=== PATIENT | female | born 1940 | race Caucasian/White ===

== ENCOUNTER → 2016-09-22 | Outpatient (CLI) | payer MEDICARE ==
--- NOTE | 2016-09-22 10:12 | REP ---
UNILATERAL MAMMOGRAM LEFT BREAST: HISTORY: Right breast cancer with mastectomy. MLO and CC views of the left breast are performed and compared to multiple prior exams, most recent of which is 09/21/2015. Breast parenchyma is moderately dense which limits the sensitivity of the mammogram. There is no definite new mass. No architectural distortion or suspicious clusters of microcalcifications are seen. IMPRESSION: ACR 2 benign mammogram left breast in this patient status post right mastectomy. Recommend followup mammogram in 1 year. BI-RADS/ACR category 2 mammogram. Benign finding(s). Routine annual screening mammography (for women over age 40). This mammogram was interpreted with the aid of an FDA-approved computer-aided detection system. A. Negative x-ray reports should not delay biopsy if a dominant or clinically suspicious mass is present. B. Four to eight percent of cancers are not identified by x-ray. C. Adenosis and dense breasts may obscure an underlying neoplasm. The patient states she had a clinical breast exam in 10/2015. The patient letter being requested is M1. Signed by Isaiah Ferguson MD 09/22/2016 08:06 P
== END ==
LOC: M RAD 07:54
PROVIDERS: ATTEND Nurse Practitioner Family
DX: Z12.31 Encounter for screening mammogram for malignant neoplasm of breast (principal)

== ENCOUNTER 2017-02-26 06:06 | Emergency (ER) | payer MEDICARE ==
[~2017-02-26] VITALS: Ht 157.5 cm; Wt 87.2 kg
[2017-02-26 07:25] LABS: BASO # 0.1 10^3/uL (0.0-0.2); BASO % 0.5 % (0.0-1.0); EOS # 0.4 10^3/uL (0.0-0.50); EOS % 3.9 % (0.0-3.0); IMMATURE GRANULOCYTE % 0.5 % (0-0); LYMPH # 1.6 10^3/uL (1.5-4.5); LYMPH % 14.5 % (24.0-44.0); MEAN CORPUSCULAR HEMOGLOBIN 28.3 pg (27.0-33.0); MEAN CORPUSCULAR HGB CONC 32.7 g/dl (32.0-36.5); MEAN CORPUSCULAR VOLUME 86.6 fl (80.0-96.0); MONO # 0.7 10^3/uL (0.0-0.8); MONO % 6.7 % (0.0-5.0); NEUTROPHILS # 8.1 10^3/uL (1.8-7.7); NEUTROPHILS % 73.9 % (36.0-66.0); PLATELET COUNT, AUTOMATED 284 10^3/uL (150-450); RED CELL DISTRIBUTION WIDTH 15.4 % (11.5-14.5); WHITE BLOOD COUNT 10.9 10^3/uL (4.0-10.0)
[2017-02-26 08:01] LABS: ANION GAP 6 MEQ/L (8-16); BLOOD UREA NITROGEN 11 MG/DL (7-18); CALCIUM LEVEL 9.2 MG/DL (8.8-10.2); CARBON DIOXIDE LEVEL 29 MEQ/L (21-32); CHLORIDE LEVEL 107 MEQ/L (98-107); CREATININE FOR GFR 0.76 MG/DL (0.55-1.02); GLOMERULAR FILTRATION RATE > 60.0 (>39); GLUCOSE, FASTING 103 MG/DL (83-110); POTASSIUM SERUM 4.8 MEQ/L (3.5-5.1); SODIUM LEVEL 142 MEQ/L (136-145)
[2017-02-26] MEDS ORDERED: TRIA25CR TOP (08:27)
[2017-02-26] MEDS ORDERED: DOXY100C37 PO (08:27)
[2017-02-26] MEDS ORDERED: BENA25TA10 PO (08:27)
[2017-02-26 08:39] VITALS: BP 172/77
== END 2017-02-26 08:41 | disposition home or self-care (01) ==
LOC: M ED 06:06
DX: L25.9 Unspecified contact dermatitis, unspecified cause (principal); L03.211 Cellulitis of face; Z85.3 Personal history of malignant neoplasm of breast; F17.200 Nicotine dependence, unspecified, uncomplicated; Z88.0 Allergy status to penicillin

== ENCOUNTER 2017-02-28 08:41 | Emergency (ER) | payer MEDICARE ==
[~2017-02-28] VITALS: Ht 157.5 cm; Wt 87.2 kg
[~2017-02-28 08:41] MED LIST: BENA25TA10 PO; DOXY100C37 PO; TRIA25CR TOP
[2017-02-28 09:50] LABS: BASO # 0.1 10^3/uL (0.0-0.2); BASO % 0.7 % (0.0-1.0); EOS # 0.3 10^3/uL (0.0-0.50); EOS % 2.8 % (0.0-3.0); IMMATURE GRANULOCYTE % 0.5 % (0-0); LYMPH # 1.6 10^3/uL (1.5-4.5); LYMPH % 14.4 % (24.0-44.0); MEAN CORPUSCULAR HEMOGLOBIN 28.3 pg (27.0-33.0); MEAN CORPUSCULAR HGB CONC 33.1 g/dl (32.0-36.5); MEAN CORPUSCULAR VOLUME 85.5 fl (80.0-96.0); MONO # 0.7 10^3/uL (0.0-0.8); MONO % 6.1 % (0.0-5.0); NEUTROPHILS # 8.2 10^3/uL (1.8-7.7); NEUTROPHILS % 75.5 % (36.0-66.0); PLATELET COUNT, AUTOMATED 285 10^3/uL (150-450); RED CELL DISTRIBUTION WIDTH 15.3 % (11.5-14.5); WHITE BLOOD COUNT 10.8 10^3/uL (4.0-10.0)
[2017-02-28 09:52] LABS: ADD MANUAL DIFFER NO; DIFF SLIDE NUMBER 129
[2017-02-28 10:13] LABS: ALBUMIN 3.7 GM/DL (3.2-5.2); ALBUMIN/GLOBULIN RATIO 1.32 (1.00-1.93); ALKALINE PHOSPHATASE 109 U/L (45-117); ALT/SGPT 16 U/L (12-78); ANION GAP 6 MEQ/L (8-16); AST/SGOT 13 U/L (15-37); BILIRUBIN,DIRECT 0.1 MG/DL (0.0-0.2); BILIRUBIN,TOTAL 0.5 MG/DL (0.2-1.0); BLOOD UREA NITROGEN 14 MG/DL (7-18); CALCIUM LEVEL 9.3 MG/DL (8.8-10.2); CARBON DIOXIDE LEVEL 27 MEQ/L (21-32); CHLORIDE LEVEL 108 MEQ/L (98-107); CREATININE FOR GFR 0.62 MG/DL (0.55-1.02); GLOMERULAR FILTRATION RATE > 60.0 (>39); GLUCOSE, FASTING 99 MG/DL (83-110); POTASSIUM SERUM 3.9 MEQ/L (3.5-5.1); SODIUM LEVEL 141 MEQ/L (136-145); TOTAL PROTEIN 6.5 GM/DL (6.4-8.2)
[2017-02-28] MEDS ORDERED: CLINDAMYCIN 900 MG in APPROPRIATE DILUENT 1 EA IV ONE (10:30)
[2017-02-28] MEDS ORDERED: CLIN150C14 PO (12:02)
[2017-02-28 12:15] VITALS: BP 158/78
== END 2017-02-28 12:22 | disposition home or self-care (01) ==
LOC: M ED 08:41
DX: Z51.89 Encounter for other specified aftercare (principal); L03.211 Cellulitis of face; Z85.3 Personal history of malignant neoplasm of breast; Z88.0 Allergy status to penicillin

== ENCOUNTER → 2017-03-02 | Outpatient (REF) | payer MEDICARE ==
[~2017-03-02] MED LIST changes: +CLIN150C14 PO
[2017-03-02 20:27] LABS: ALBUMIN 3.8 GM/DL (3.2-5.2); ALBUMIN/GLOBULIN RATIO 1.31 (1.00-1.93); ALKALINE PHOSPHATASE 114 U/L (45-117); ALT/SGPT 20 U/L (12-78); ANION GAP 5 MEQ/L (8-16); AST/SGOT 12 U/L (15-37); BILIRUBIN,TOTAL 0.4 MG/DL (0.2-1.0); BLOOD UREA NITROGEN 17 MG/DL (7-18); CARBON DIOXIDE LEVEL 31 MEQ/L (21-32); CHLORIDE LEVEL 105 MEQ/L (98-107); CHOLESTEROL LEVEL 217 MG/DL (<200); CREATININE FOR GFR 0.89 MG/DL (0.55-1.02); GLOMERULAR FILTRATION RATE > 60.0 (>39); GLUCOSE, FASTING 114 MG/DL (83-110); POTASSIUM SERUM 3.8 MEQ/L (3.5-5.1); SODIUM LEVEL 141 MEQ/L (136-145); TOTAL PROTEIN 6.7 GM/DL (6.4-8.2); TRIGLYCERIDES LEVEL 178 MG/DL (<150)
== END ==
LOC: M SFHCPLAZ 15:26
PROVIDERS: ATTEND Family Medicine
DX: E66.9 Obesity, unspecified (principal); Z68.30 Body mass index [BMI] 30.0-30.9, adult; L30.9 Dermatitis, unspecified; A46 Erysipelas; F17.200 Nicotine dependence, unspecified, uncomplicated; Z79.899 Other long term (current) drug therapy
CPT/HCPCS: 80053; 80061; 83036; G0463

== ENCOUNTER → 2017-04-01 | Outpatient (CLI) | payer MEDICARE ==
[2017-04-01 19:13] LABS: ANION GAP 8 MEQ/L (8-16); BLOOD UREA NITROGEN 10 MG/DL (7-18); CARBON DIOXIDE LEVEL 29 MEQ/L (21-32); CHLORIDE LEVEL 105 MEQ/L (98-107); CREATININE FOR GFR 0.72 MG/DL (0.55-1.02); GLOMERULAR FILTRATION RATE > 60.0 (>39); GLUCOSE, FASTING 92 MG/DL (83-110); SODIUM LEVEL 142 MEQ/L (136-145)
== END ==
LOC: M LAB 18:06
PROVIDERS: ATTEND Family Medicine
DX: I16.0 Hypertensive urgency (principal)
CPT/HCPCS: 36415; 80048; 83880; 84484; 93005; G0463

== ENCOUNTER → 2017-04-28 | Outpatient (REF) | payer MEDICARE ==
[2017-04-28 16:22] LABS: ANION GAP 7 MEQ/L (8-16); BLOOD UREA NITROGEN 22 MG/DL (7-18); CALCIUM LEVEL 9.1 MG/DL (8.8-10.2); CARBON DIOXIDE LEVEL 32 MEQ/L (21-32); CHLORIDE LEVEL 101 MEQ/L (98-107); CREATININE FOR GFR 0.78 MG/DL (0.55-1.02); GLOMERULAR FILTRATION RATE > 60.0 (>39); GLUCOSE, FASTING 76 MG/DL (83-110); POTASSIUM SERUM 4.6 MEQ/L (3.5-5.1); SODIUM LEVEL 140 MEQ/L (136-145)
== END ==
LOC: M SFHCPLAZ 14:25
PROVIDERS: ATTEND Family Medicine
DX: I10 Essential (primary) hypertension (principal)
CPT/HCPCS: 80048; G0463

== ENCOUNTER → 2017-09-17 | Outpatient (REF) | payer OTHER ==
[2017-09-17 13:58] LABS: ANION GAP 8 MEQ/L (8-16); BLOOD UREA NITROGEN 20 MG/DL (7-18); CARBON DIOXIDE LEVEL 29 MEQ/L (21-32); CHLORIDE LEVEL 108 MEQ/L (98-107); CHOLESTEROL LEVEL 183 MG/DL (<200); CHOLESTEROL RISK RATIO 3.588 (<5); GLOMERULAR FILTRATION RATE > 60.0 (>39); GLUCOSE, FASTING 84 MG/DL (70-100); HDL CHOLESTEROL 51 MG/DL (>40); LDL CHOLESTEROL 107.6 MG/DL (<100); NON-HDL-C 132 MG/DL; POTASSIUM SERUM 4.7 MEQ/L (3.5-5.1); SODIUM LEVEL 145 MEQ/L (136-145); TRIGLYCERIDES LEVEL 122 MG/DL (<150)
== END ==
LOC: M SFHCPLAZ 07:58
DX: E78.2 Mixed hyperlipidemia (principal); I10 Essential (primary) hypertension
CPT/HCPCS: 80061

== ENCOUNTER → 2017-09-25 | Outpatient (CLI) | payer OTHER, MEDICARE | LOC: M RAD 08:00 | DX: Z08 Encounter for follow-up examination after completed treatment for malignant neoplasm (principal); Z12.31 Encounter for screening mammogram for malignant neoplasm of breast; Z85.3 Personal history of malignant neoplasm of breast | CPT/HCPCS: 77067 ==

== ENCOUNTER → 2018-03-11 | Outpatient (REF) | payer OTHER ==
[2018-03-11 14:08] LABS: ANION GAP 8 MEQ/L (8-16); BLOOD UREA NITROGEN 20 MG/DL (7-18); CALCIUM LEVEL 8.4 MG/DL (8.8-10.2); CARBON DIOXIDE LEVEL 29 MEQ/L (21-32); CHLORIDE LEVEL 109 MEQ/L (98-107); CREATININE FOR GFR 0.99 MG/DL (0.55-1.30); GLOMERULAR FILTRATION RATE 57.6 (>39); GLUCOSE, FASTING 113 MG/DL (70-100); SODIUM LEVEL 146 MEQ/L (136-145)
== END ==
LOC: M SFHCPLAZ 09:09
DX: I10 Essential (primary) hypertension (principal)
CPT/HCPCS: 80048

== ENCOUNTER → 2018-09-27 | Outpatient (CLI) | payer MEDICARE ==
--- NOTE | 2018-09-27 14:45 | REP ---
UNILATERAL MAMMOGRAM LEFT BREAST WITH 3D TOMOSYNTHESIS: HISTORY: Right breast cancer and mastectomy. COMPARISON: 09/25/2017 as well as other prior exams. Mammography of the left breast performed in the MLO and CC projections with 3D tomosynthesis. Breast parenchyma is moderately dense. There is no change since the prior study. Small nodular density posterolaterally on the CC view is stable. I see no new mass or clustered microcalcifications. There are course benign type calcifications present. IMPRESSION: BIRADS 2: BI-RADS/ACR category 2 mammogram. Benign Findings. Stable mammogram left breast in this patient status post right mastectomy. Suggest followup mammogram in 1 year. This mammogram was interpreted with the aid of an FDA-approved computer-aided detection system. The patient states he/she had a clinical breast exam in 10/2017. The patient letter being requested is M1. Electronically Signed by Isaiah Ferguson MD 09/27/2018 04:27 P
== END ==
LOC: M RAD 09:24
PROVIDERS: ATTEND Nurse Practitioner Family
DX: Z12.31 Encounter for screening mammogram for malignant neoplasm of breast (principal); Z85.3 Personal history of malignant neoplasm of breast; Z90.11 Acquired absence of right breast and nipple; R92.1 Mammographic calcification found on diagnostic imaging of breast

== ENCOUNTER → 2020-08-13 | Outpatient (REF) | payer MEDICARE ==
[~2020-08-13] MED LIST changes: +ASPI81TA21 PO; -CLIN150C14 PO; +CLIN150C15 PO; +LOSA50TA88 PO; +METO25TA4 PO; +PRAV40TA2 PO
[2020-08-13 13:05] LABS: HEMATOCRIT 43.5 % (36.0-47.0); HEMOGLOBIN 13.8 g/dl (12.0-15.5); MEAN CORPUSCULAR HEMOGLOBIN 27.3 pg (27.0-33.0); MEAN CORPUSCULAR HGB CONC 31.7 g/dl (32.0-36.5); MEAN CORPUSCULAR VOLUME 86.1 fl (80.0-96.0); PLATELET COUNT, AUTOMATED 292 10^3/uL (150-450); RED BLOOD COUNT 5.05 10^6/uL (4.00-5.40); WHITE BLOOD COUNT 10.4 10^3/uL (4.0-10.0)
[2020-08-13 13:25] LABS: ALBUMIN 3.6 GM/DL (3.2-5.2); BILIRUBIN,TOTAL 0.4 MG/DL (0.2-1.0); CALCIUM LEVEL 9.3 MG/DL (8.8-10.2); CHOLESTEROL RISK RATIO 3.087 (<5); CREATININE FOR GFR 1.08 MG/DL (0.55-1.30); GLOMERULAR FILTRATION RATE 51.8 (>32); POTASSIUM SERUM 4.4 MEQ/L (3.5-5.1); TOTAL PROTEIN 6.4 GM/DL (6.4-8.2)
== END ==
LOC: M SFHCPLAZ 10:51
PROVIDERS: ATTEND Family Medicine
DX: E78.5 Hyperlipidemia, unspecified (principal); I10 Essential (primary) hypertension
CPT/HCPCS: 36415; 80053; 80061; 85027; G0463

== ENCOUNTER → 2020-11-28 | Outpatient (CLI) | payer MEDICARE ==
[~2020-11-28] MED LIST changes: -DOXY100C37 PO; +DOXY1CAP62 PO
[2020-11-28 15:49] LABS: ALBUMIN 3.4 GM/DL (3.2-5.2); BILIRUBIN,TOTAL 0.7 MG/DL (0.2-1.0); CALCIUM LEVEL 8.8 MG/DL (8.8-10.2); CREATININE FOR GFR 1.02 MG/DL (0.55-1.30); GLOMERULAR FILTRATION RATE 55.2 (>32); POTASSIUM SERUM 4.3 MEQ/L (3.5-5.1); TOTAL PROTEIN 6.1 GM/DL (6.4-8.2)
== END ==
LOC: M PLALAB 12:20
PROVIDERS: ATTEND Student in an Organized Health Care Education/Training Program
DX: R74.8 Abnormal levels of other serum enzymes (principal)

== ENCOUNTER → 2021-01-28 | Outpatient (CLI) | payer MEDICARE ==
[~2021-01-28] MED LIST changes: -CLIN150C15 PO; +CLIN150C17 PO
[2021-01-28 20:20] LABS: % LABILE ALKALINE PHOSPHATASE 67.16 %
== END ==
LOC: M PLALAB 14:03
PROVIDERS: ATTEND Student in an Organized Health Care Education/Training Program
DX: R74.8 Abnormal levels of other serum enzymes (principal)

== ENCOUNTER → 2021-02-20 | Outpatient (CLI) | payer MEDICARE ==
--- NOTE | 2021-02-20 08:23 | REP ---
INDICATION: ELEVATED ALKALINE PHOSPHATE LEVEL. COMPARISON: None. TECHNIQUE: Standard ultrasound images of the right upper quadrant of the abdomen were obtained. FINDINGS: There is fatty liver infiltration. There is a cyst in the posterior segment of the right hepatic lobe measuring 2.3 x 2.1 x 1.9 cm. There is a 4 mm stone in the gallbladder. There is no gallbladder wall thickening. Common bile duct measures 6 mm in diameter. The right kidney measures 9.1 x 5.3 x 3.9 cm. The renal cortical echogenicity is increased consistent with medical renal disease. The renal cortical thickness is 8 mm. There are no focal abnormalities. There is no evidence of hydronephrosis. The pancreas is obscured by overlying bowel gas. IMPRESSION: 1. Fatty liver infiltration. 2. Cholelithiasis without evidence of cholecystitis. 3. Increased cortical echogenicity of the right kidney consistent with medical renal disease. <Electronically signed by Emerson Ferrell > 02/20/21 0819
== END ==
LOC: M RAD 07:39
PROVIDERS: ATTEND Student in an Organized Health Care Education/Training Program
DX: R74.8 Abnormal levels of other serum enzymes (principal); K80.20 Calculus of gallbladder without cholecystitis without obstruction

== ENCOUNTER 2021-05-03 18:26 | Inpatient (IN) | payer MEDICARE ==
[~2021-05-03] VITALS: Ht 152.4 cm; Wt 72.6 kg
[~2021-05-03 18:26] MED LIST changes: +DOXY-443 PO; -DOXY1CAP62 PO
--- OUTSIDE RECORDS SUMMARY | 2021-05-03 18:33 | CCD ---
Author Author [facility] Organization [facility] Address Unknown Phone Unavailable Care Team Providers Care Feed Blender Name Role Phone PricillaClemente Unavailable PROBLEMS Type Condition ICD9-CM Code [id number] Code Onset Dates Condition S tatus W/U Status Risk SNOMED Code Notes Problem Smoker F17.200 Active confirmed 81688426 Problem Mixed hyperlipidemia E78.2 Active confirmed 369749601 Problem Insomnia, unspecified type G47.00 Active confirmed 890633281 Problem Dyslipidemia E78.5 Active confirmed 3315892 07 Problem Psychophysiological insomnia F51.04 Active confirme d 56967394 Problem Hypertension, unspecified type I10 Active confir med 76720199 Problem Stress bladder incontinence, female N39.3 Acti ve confirmed 95694864 Problem Nicotine dependence with current use F17.200 Act monty confirmed 089624353 ALLERGIES Allergen (clinical drug ingredient) Drug/Non Drug Allergy do cumented on EMR Reaction Allergy Type Onset Date Status Penicillin (For Allergies Use Only) Hives Drug Allerg y Active ENCOUNTERS from 1940 to 2021-04-17 Encounter Location Date Provider Diagnosis [facility] [address] [place] [address] Apr, Clemente Pleitez IMMUNIZATIONS Vaccine Route Administration Date Status Influenza 18 yrs & older Flublok IM Intramuscular Mar 22, 2019 Administered Influenza 18 yrs & older Flublok IM Intramuscular Mar 18, 2018 Administered SOCIAL HISTORY Tobacco Use: Social History Observation Description Date Details (start date - stop date) Current Smoker Sex Assigned At : Social History Observation Description Sex Assigned At Unknown Education: Question Answer Notes Level of Education: High School Audit Question Answer Notes Total Score: 0 Interpretation: Alcohol Education Language: Question Answer Notes Languages spoken: [place]guill[place] Yarsani: Question Answer Notes Yarsani No yazdanism beliefs that would impact health care. Sexual Hx: Question Answer Notes Had sex in the last 12 months (vaginal, oral, or anal)? No Have you ever had an STD? No Drug and Alcohol Question Answer Notes Total Score: 0 Interpretation: No problems reported Alcohol Screening: Question Answer Notes Did you have a drink containing alcohol in the past year? No Points 0 Interpretation Negative Tobacco Use: Question Answer Notes Are you a: current smoker How many cigarettes a day do you smoke? 6-10 Are you interested in quitting? Not ready to quit Counseled the patient on smoking effects, education provided 12/13/2019 REASON FOR REFERRAL No Information VITAL SIGNS No information MEDICATIONS Medication SIG (Take, Route, Frequency, Duration) Notes Start Da te End Date Status Triamcinolone Acetonide 0.025 % 1 application to face Externally Twice a day as needed for itching for 14 day(s) Apply to rash twice daily until skin oswald ars, but no longer than 3 weeks. Do not apply for repeated doses without discussing with your doctor. Unknown Triamcinolone Acetonide 0.1 % 1 gm to each area the si ze of your hand to rash Externally Twice a day for 14 day(s) Dec, Unknown Chlorthalidone 25 MG TAKE ONE TABLET BY MOUTH TAI RY DAY IN THE MORNING Orally Once a day for 90 days Active Metoprolol Tartrate 25 mg take one tablet by mouth twi ce a day with food Orally Daily for 90 days Active traZODone HCl 50 MG 1 tablet at bedtime as neede d Orally Once a day for 30 day(s) Aug, Unknown Losartan Potassium 50 MG 1 tablet Orally Once a day for 90 day(s) Active Lubriderm - as directed Externally Daily all over body and f gagandeep for 30 day(s) Mar, Unknown Pravastatin Sodium 40 MG 1 tablet Orally Once a day Unknown Aspirin 81 MG 1 tablet Orally Once a day Mar, Unknown PROCEDURES No Information RESULTS No Results REASON FOR VISIT refill MEDICAL (GENERAL) HISTORY Type Description Date Medical History Erysipelas Medical History Breast Cancer s/p mastectomy, 1998 Medical History HTN, Goal of < 150/90 Surgical History hysterectomy UNK Date Surgical History R mastectomy UNK Date Hospitalization History Surgeries only Goals Section No Information Health Concerns No Information MEDICAL EQUIPMENT No Information MENTAL STATUS No Information FUNCTIONAL STATUS No Information ASSESSMENTS No Information PLAN OF TREATMENT Medication Medication Name Sig Start Date Stop Date Metoprolol Tartrate 25 mg take one tablet by mouth twi ce a day with food Orally Daily for 90 days Losartan Potassium 50 MG 1 tablet Orally Once a day for 90 day(s ) Chlorthalidone 25 MG TAKE ONE TABLET BY MOUTH TAI RY DAY IN THE MORNING Orally Once a day for 90 days Next Appt Details Provider Name:Clemente Pleitez, 2020-06 03:30:00 PM, [address] [facility], , [place], [address], Insurance Providers Payer Name Payer Address Payer Phone Insured Name Patient Relati onship to Insured Coverage Start Date Coverage End Date [facility] [address] [address] [facility] [id number] MILAGRO COFFMAN self
--- OUTSIDE RECORDS SUMMARY | 2021-05-03 18:33 | CCD ---
Author Author [facility] Organization [facility] Address Unknown Phone Unavailable Support Name Relationship Address Phone LUIS FERNANDO GARNER Next Of Kin [address] [place] [address] LUIS FERNANDO POE Next Of Kin [address] [place] [id number] RETIRED Next Of Kin Unknown ORQUIDEA GARNER Next Of Kin [address] [facility] [place] [address] RE Next Of Kin Unknown Unavailable ORQUIDEA POE Next Of Kin [address] [place] [address] LUIS FERNANDO GARNER ECON Unknown Unavailable Orquidea Garner ECON [address] [place] [address] Unavailable Orquidea Poe ECON Unknown [phone] Re-disclosure Warning The records that you are about to access may contain information from federally-assisted alcohol or drug abuse programs. If such information is present, then the following federally mandated warning applies: This information has been disclosed to you from records protected by federal confidentiality rules (42 CFR part 2). The federal rules prohibit you from making any further disclosure of this information unless further disclosure is expressly permitted by the written consent of the person to whom it pertains or as otherwise permitted by 42 CFR part 2. A general authorization for the release of medical or other information is NOT sufficient for this purpose. The Federal rules restrict any use of the information to criminally investigate or prosecute any alcohol or drug abuse patient.The records that you are about to access may contain highly sensitive health information, the redisclosure of which is protected by Article 27-F of the [place] State Public Health law. If you continue you may have access to information: Regarding HIV / AIDS; Provided by facilities licensed or operated by the [facility] Office of Mental Health; or Provided by the [facility] Office for People With Developmental Disabilities. If such information is present, then the following [facility] mandated warning applies: This information has been disclosed to you from confidential records which are protected by state law. State law prohibits you from making any further disclosure of this information without the specific written consent of the person to whom it pertains, or as otherwise permitted by law. Any unauthorized further disclosure in violation of state law may result in a fine or retirement sentence or both. A general authorization for the release of medical or other information is NOT sufficient authorization for further disc losure. Family History Family Member Name Family Member Gender Family Member Status Date o f Status Description Data Source(s) Unknown Unknown Problem MEDENT ([facility], ) Encounters Encounter Providers Location Date Indications Data Source(s ) Office Visit, Est Pt., Level 3 FC [address] [place] [address] 04/30/2021 12:00:00 AM EST eCW1 ([facility]) Unknown [address] [facility] [address] 04/29/2021 12:00:00 AM EST eCW1 [facility] Unknown [address] [facility] [address] 04/17/2021 12:00:00 AM EST [facility]CW[facility] Unknown [address] [facility] [address] 04/15/2021 12:00:00 AM EST eCW1 [facility] Unknown [address] [facility] [address] 02/11/2021 12:00:00 AM EDT [facility]CW1 [facility]) Unknown [address] [facility] [address] 01/28/2021 12:00:00 AM EDT eCW1 [facility]) Outpatient [address] [facility] [address] 01/21/2021 12:00:00 AM EDT eCW1 ([facility]) [place] [address] [facility] [address] 01/21/2021 12:00:00 AM EDT eCW1 ([facility]) [place] [address] [facility] [address] 09/25/2020 12:00:00 AM EDT eCW1 ([facility]) [place] [address] [facility] [address] 08/13/2020 12:00:00 AM EDT eCW1 ([facility]) [place] [address] [facility] [address] 05/18/2020 12:00:00 AM EST eCW1 ([facility]) [place] [address] [facility] [address] 03/06/2020 12:00:00 AM EDT eCW1 ([facility]) Immunizations Vaccine Date Status Description Data Source(s) COVID-19 VACCINE Moderna 08/14/2020 12:00:00 AM EDT completed [place] Vaccine Series Complete: YESThis Data wa s Submitted to [facility] Via [facility]. COVID-19 VACCINE Moderna 07/17/2020 12:00:00 AM EST completed [place] Vaccine Series Complete: NOThis Data was Submitted to [facility] Via [facility]. Medications Medication Brand Name Start Date Product Form Dose Route Admi nistrative Instructions Pharmacy Instructions Status Indications Reaction Description Data Source(s) Blood Pressure Kit - Blood Pressure Kit - 04/30/2021 12:00:00 AM EST active Blood Pressure Kit - eCW1 ([facility]) Blood Pressure Cuff - Blood Pressure Cuff - 04/30/2021 12:00:00 AM EST active Blood Pressure Cuff - eCW1 ( [facility]) 25 mg 04/17/2021 12:00:00 AM EST tablet 90 TAKE ONE TABLET BY MOUTH TWICE A DAY WITH FOOD TAKE ONE TABLET BY MOUTH TWICE A DAY WITH FOOD SOLD: 04/17/2021 [facility] Chlorthalidone 25 MG Oral Tablet CHLORTHALIDONE 04/17/2021 12:0 0:00 AM EST tablet 90 TAKE ONE TABLET BY MOUTH EVERY D AY IN THE MORNING TAKE ONE TABLET BY MOUTH EVERY DAY IN THE MORNING SOLD: 04/17/2021 [facility] 50 mg 04/17/2021 12:00:00 AM EST tablet 90 TAKE ONE TABLET BY MOUTH EVERY DAY TAKE ONE TABLET BY MOUTH EVERY DAY SOLD: 04/17/2021 [facility] 240 mcg/0.7 mL 04/06/2021 12:00:00 AM EDT syringe 0 INJECT DIRECTED INJECT DIRECTED SOLD: 04/06/2021 [facility] 25 mg 01/29/2021 12:00:00 AM EDT tablet 90 TAKE ONE TABLET BY MOUTH EVERY MORNING TAKE ONE TABLET BY MOUTH EVERY MORNING SOLD: 01/31/2021 [facility] 50 mg 01/14/2021 12:00:00 AM EDT tablet 90 TAKE ONE TABLET BY MOUTH EVERY DAY TAKE ONE TABLET BY MOUTH EVERY DAY SOLD: 01/16/2021 [facility] 25 mg 07/28/2020 12:00:00 AM EST tablet 90 TAKE ONE TABLET BY MOUTH EVERY DAY IN THE MORNING TAKE ONE TABLET BY MOUTH EVERY DAY IN THE MORNING SOLD : 07/30/2020 [facility] 25 mg 05/21/2020 12:00:00 AM EST tablet 90 TAKE ONE TABLET BY MOUTH EVERY DAY IN THE MORNING TAKE ONE TABLET BY MOUTH EVERY DAY IN THE MORNING SOLD : 05/21/2020 [facility] 40 mg 03/24/2020 12:00:00 AM EDT tablet 30 TAKE ONE TABLET BY MOUTH EVERY DAY TAKE ONE TABLET BY MOUTH EVERY DAY SOLD: 03/26/2020 [facility] 25 mg 03/05/2020 12:00:00 AM EDT tablet 180 TAKE ONE TABLET BY MOUTH TWICE A DAY TAKE ONE TABLET BY MOUTH TWICE A DAY SOLD: 03/07/2020 [facility] 25 mg 03/05/2020 12:00:00 AM EDT tablet 180 TAKE ONE TABLET BY MOUTH TWICE A DAY TAKE ONE TABLET BY MOUTH TWICE A DAY SOLD: 09/03/2020 [facility] 25 mg 03/05/2020 12:00:00 AM EDT tablet 180 TAKE ONE TABLET BY MOUTH TWICE A DAY TAKE ONE TABLET BY MOUTH TWICE A DAY SOLD: 06/04/2020 [facility] 25 mg 03/05/2020 12:00:00 AM EDT tablet 180 TAKE ONE TABLET BY MOUTH TWICE A DAY TAKE ONE TABLET BY MOUTH TWICE A DAY SOLD: 12/06/2020 [facility] 50 mg 01/16/2020 12:00:00 AM EDT tablet 90 TAKE ONE TABLET BY MOUTH EVERY DAY TAKE ONE TABLET BY MOUTH EVERY DAY SOLD: 07/20/2020 [facility] 50 mg 01/16/2020 12:00:00 AM EDT tablet 90 TAKE ONE TABLET BY MOUTH EVERY DAY TAKE ONE TABLET BY MOUTH EVERY DAY SOLD: 10/17/2020 [facility] 40 mg 01/16/2020 12:00:00 AM EDT tablet 90 TAKE ONE TABLET BY MOUTH EVERY DAY TAKE ONE TABLET BY MOUTH EVERY DAY SOLD: 04/16/2020 [facility] 40 mg 01/16/2020 12:00:00 AM EDT tablet 90 TAKE ONE TABLET BY MOUTH EVERY DAY TAKE ONE TABLET BY MOUTH EVERY DAY SOLD: 10/17/2020 [facility] 50 mg 01/16/2020 12:00:00 AM EDT tablet 90 TAKE ONE TABLET BY MOUTH EVERY DAY TAKE ONE TABLET BY MOUTH EVERY DAY SOLD: 04/16/2020 [facility] 40 mg 01/16/2020 12:00:00 AM EDT tablet 90 TAKE ONE TABLET BY MOUTH EVERY DAY TAKE ONE TABLET BY MOUTH EVERY DAY SOLD: 07/20/2020 [facility] Insurance Providers Payer name Policy type / Coverage type Policy ID Covered alliance party ID Covered alliance party's relationship to ruff Policy Ruff Plan Information MEDICARE COMPLETE [id number] SP [id number] MEDICARE COMPLETE [id number] SP [id number] MEDICARE COMPLETE [id number] SP [id number] [place] OPTIONS [id number] SP [id number] [facility] [id number] SP [id number] [place] OPTIONS [id number] SP [id number] ANSI-Medicare Part B [id number] ANSI-Health Maintenance Organization (HM O) [id number] ANSI-Medicare Part B [id number] ANSI-Medicare Part B [id number] ANSI-Medicare Part B [id number] ANSI-Medicare Part B [id number] ANSI-Medicare Part B [id number] ANSI-Medicare Part B [id number] ANSI-Medicare Part B [id number] ANSI-Medicare Part B [id number] TODAYS OPTIONS/STATELESS O [id number] S [id number] MEDICARE COMPLETE [id number] SP [id number] MEDICARE COMPLETE [id number] SP [id number] MEDICARE COMPLETE [id number] SP [id number] [facility] Medicare Commercial [id number] Self [id number] [facility] Medicare Commercial [id number] Self [id number] MEDICARE COMPLETE-[facility] O [id number] O [id number] MEDICARE COMPLETE-[facility] P [id number] S [id number] [employer] [id number] SP [id number] TODAYS OPTIONS [id number] SP [id number] ANSI-Medicare Part B [id number] ANSI-Health Maintenance Organization (HM O) [id number] ANSI-Medicare Part B [id number] ANSI-Medicare Part B [id number] Problems, Conditions, and Diagnoses Code Display Name Description Problem Type Effective Dates Data Source(s) K80.20 94119551 Calculus of gallblad elieser without cholecystitis without obstruction Problem 04/30/2021 12:00:00 AM EST eCW1 ([facility]) K76.0 [id number] Fatty liver disease, nonalcoholic Problem 04/30/2021 12:00:00 AM EST eCW1 ([facility]) Surgeries/Procedures No Information Results ID Date Data Source ALK PHOS FRACTIONATED 01/28/2021 12:00:00 AM EDT eCW1 ([facility]) Name Value Range Interpretation Code Description Data Pooja rce(s) Supporting Document(s) 90 LABILE ALKPHOS eCW1 ([facility]) 67.16 % LABILE ALKALINE PHOSPHATASE eCW1 ([facility]) 44 STABLE ALKPHOS eCW1 ([facility]) Procedure Social History Code Duration Value Status Description Data Source(s ) Smoking 04/30/2021 12:00:00 AM EST Current Smoker completed Curre nt Smoker eCW1 ([facility]) Smoking 01/21/2021 12:00:00 AM EDT Current Smoker completed Curre nt Smoker eCW1 ([facility]) Smoking 01/21/2021 12:00:00 AM EDT Current Smoker completed Curre nt Smoker eCW1 ([facility]) Smoking 01/21/2021 12:00:00 AM EDT Current Smoker completed Curre nt Smoker eCW1 ([facility]) Smoking 01/21/2021 12:00:00 AM EDT Current Smoker completed Curre nt Smoker eCW1 ([facility]) Smoking 01/21/2021 12:00:00 AM EDT Current Smoker completed Curre nt Smoker eCW1 ([facility]) Smoking 01/21/2021 12:00:00 AM EDT Current Smoker completed Curre nt Smoker eCW1 ([facility]) Smoking 01/21/2021 12:00:00 AM EDT Current Smoker completed Curre nt Smoker eCW1 ([facility]) Smoking 09/24/2020 12:00:00 AM EDT Current Smoker completed Curre nt Smoker eCW1 ([facility]) Smoking 08/13/2020 12:00:00 AM EDT Current Smoker completed Curre nt Smoker eCW1 ([facility]) Smoking 03/06/2020 12:00:00 AM EDT Current Smoker completed Curre nt Smoker eCW1 ([facility]) Smoking 03/06/2020 12:00:00 AM EDT Current Smoker completed Curre nt Smoker eCW1 ([facility]) Vital Signs ID Date Data Source UNK Name Value Range Interpretation Code Description Data Source(s) Heart rate 74 /min 74 /min eCW1 ([facility]) Body weight 163 [lb_av] 163 [lb_av] eCW1 ([facility]) Body weight 73.94 kg 73.94 kg eCW1 ([facility]) Body height 66 [in_i] 66 [in_i] eCW1 ([facility]) Body mass index (BMI) [Ratio] 26.31 kg/m2 26.31 kg/m2 eCW1 ([facility]) Respiratory rate 18 /min 18 /min eCW1 ([facility]) Body temperature 97.5 [degF] 97.5 [degF] eCW1 ( [facility]) Systolic blood pressure 100 mm[Hg] 100 mm[Hg] e CW1 ([facility]) Diastolic blood pressure 62 mm[Hg] 62 mm[Hg] eCW1 ([facility]) Body weight 170.4 [lb_av] 170.4 [lb_av] eCW1 ([facility]) Body weight 77.29 kg 77.29 kg eCW1 ([facility]) Body height 66 [in_i] 66 [in_i] eCW1 ([facility]) Body mass index (BMI) [Ratio] 27.50 kg/m2 27.50 kg/m2 eCW1 ([facility]) Heart rate 75 /min 75 /min eCW1 ([facility]) Respiratory rate 18 /min 18 /min eCW1 ([facility]) Body temperature 97.8 [degF] 97.8 [degF] eCW1 ( [facility]) Systolic blood pressure 118 mm[Hg] 118 mm[Hg] e CW1 ([facility]) Diastolic blood pressure 78 mm[Hg] 78 mm[Hg] eCW1 ([facility]) Body weight 178 [lb_av] 178 [lb_av] eCW1 ([facility]) Body height 66 [in_i] 66 [in_i] eCW1 ([facility]) Body mass index (BMI) [Ratio] 28.73 kg/m2 28.73 kg/m2 eCW1 ([facility]) Heart rate 61 /min 61 /min eCW1 ([facility]) Respiratory rate 18 /min 18 /min eCW1 ([facility]) Body temperature 97.9 [degF] 97.9 [degF] eCW1 ( [facility]) Systolic blood pressure 122 mm[Hg] 122 mm[Hg] e CW1 ([facility]) Diastolic blood pressure 82 mm[Hg] 82 mm[Hg] eCW1 ([facility]) Diastolic blood pressure 84 mm[Hg] 84 mm[Hg] eCW1 ([facility]) Body weight 176 [lb_av] 176 [lb_av] eCW1 ([facility]) Body height 66 [in_i] 66 [in_i] eCW1 ([facility]) Body mass index (BMI) [Ratio] 28.40 kg/m2 28.40 kg/m2 eCW1 ([facility]) Heart rate 66 /min 66 /min eCW1 ([facility]) Respiratory rate 18 /min 18 /min eCW1 ([facility]) Body temperature 97.6 [degF] 97.6 [degF] eCW1 ( [facility]) Systolic blood pressure 120 mm[Hg] 120 mm[Hg] e CW1 ([facility]) Body weight 182 [lb_av] 182 [lb_av] eCW1 ([facility]) Body height 66 [in_i] 66 [in_i] eCW1 ([facility]) Body mass index (BMI) [Ratio] 29.37 kg/m2 29.37 kg/m2 eCW1 ([facility]) Heart rate 70 /min 70 /min eCW1 ([facility]) Respiratory rate 19 /min 19 /min eCW1 ([facility]) Body temperature 98.4 [degF] 98.4 [degF] eCW1 ( [facility]) Systolic blood pressure 116 mm[Hg] 116 mm[Hg] e CW1 ([facility]) Diastolic blood pressure 80 mm[Hg] 80 mm[Hg] eCW1 ([facility]) Patient Treatment Plan of Care Planned Activity Planned Date Details Description Data Source (s) Blood Pressure Cuff - 04/30/2021 12:00:00 AM EST eCW1 ([facility]) Blood Pressure Kit - 04/30/2021 12:00:00 AM EST eCW1 ([facility])
--- OUTSIDE RECORDS SUMMARY | 2021-05-03 18:33 | CCD ---
Author Author [facility] Organization [facility] Address Unknown Phone Unavailable Care Team Providers Care Reducing Machine Operator Name Role Phone Clemente Pleitez Unavailable PROBLEMS Type Condition ICD9-CM Code OFK95-NO Code Onset Dates Condition S tatus W/U Status Risk SNOMED Code Notes Problem Smoker F17.200 Active confirmed 64056184 Problem Mixed hyperlipidemia E78.2 Active confirmed 183975001 Problem Insomnia, unspecified type G47.00 Active confirmed 055252941 Problem Dyslipidemia E78.5 Active confirmed 4858393 07 Problem Psychophysiological insomnia F51.04 Active confirme d 30810879 Problem Hypertension, unspecified type I10 Active confir med 74377887 Problem Stress bladder incontinence, female N39.3 Acti ve confirmed 22650762 Problem Nicotine dependence with current use F17.200 Act monty confirmed 969277386 ALLERGIES Allergen (clinical drug ingredient) Drug/Non Drug Allergy do cumented on EMR Reaction Allergy Type Onset Date Status Penicillin (For Allergies Use Only) Hives Drug Allerg y Active ENCOUNTERS from 1940 to 2021-02-21 Encounter Location Date Provider Diagnosis [facility] Resident [address] [facility] [phone] [place] [address] Dec, Clemente Pleitez Elevated alkaline ph osphatase level R74.8 IMMUNIZATIONS Vaccine Route Administration Date Status Influenza [...] Education Language: Question Answer Notes Languages spoken: Thai Mormon: Question Answer Notes Mormon No jainism beliefs that would impact health care. Sexual [...] REASON FOR REFERRAL No Information VITAL SIGNS Weight 170.4 lbs Dec, Weight-kg 77.29 kg Dec, Height 66 in Dec, BMI 27.50 kg/m2 Dec, Heart Rate 75 /min Dec, Respiratory Rate 18 /min Dec, Temperature 97.8 degrees Fahrenheit Dec, Oximetry 99 Dec, Blood pressure systolic 118 mm Hg Dec, Blood pressure diastolic 78 mm Hg Dec, MEDICATIONS Medication SIG (Take, Route, Frequency, Duration) [...] a day for 14 day(s) Dec, Unknown Metoprolol Tartrate 25 mg take one tablet by mouth twi ce a day with food Orally Daily for 90 days Unknown Losartan Potassium 50 MG 1 tablet Orally Once a day for 90 day(s) Unknown traZODone HCl 50 MG 1 tablet at bedtime as neede d Orally Once a day for 30 day(s) Aug, Unknown Pravastatin Sodium 40 MG 1 tablet Orally Once a day Unknown Lubriderm - as directed Externally Daily all over body and f gagandeep for 30 day(s) Mar, Unknown Chlorthalidone 25 MG TAKE ONE TABLET BY MOUTH TAI RY DAY IN THE MORNING Orally Once a day for 90 days Active Aspirin 81 MG 1 tablet Orally Once a day Mar, Unknown PROCEDURES No Information RESULTS Component Value Reference Range ALK PHOS FRACTIONATED Reviewed date:02/11/2021 17:32:38 Interpretation: Performing Lab:[facility], [facility] [address] [facility] [id number] , ,[place] [address] STABLE ALKPHOS 44 LABILE ALKPHOS 90 % LABILE ALKALINE PHOSPHATASE 67.16 REASON FOR VISIT 3 months Elevated Alk Phos r/s from 12/28 MEDICAL (GENERAL) HISTORY Type Description Date Medical History Erysipelas Medical History Breast Cancer s/p mastectomy, 1998 Medical History HTN, Goal of < 150/90 Surgical History hysterectomy UNK Date Surgical History R mastectomy UNK Date Hospitalization History Surgeries only Goals Section No Information Health Concerns No Information MEDICAL EQUIPMENT No Information MENTAL STATUS No Information FUNCTIONAL STATUS No Information ASSESSMENTS Encounter Date Diagnosis Assessment Notes Treatment Notes Treatm ent Clinical Notes Dec, Elevated alkaline phosphatase level (ICD-10 - R7 4.8) Since alkaline phosphatase may be elevated due to bone etiology (cancer), fractionated alkaline phosphatase has been ordered. Although patient does not have any nausea, vomiting, diarrhea at this time gallbladder ultrasound has been ordered to rule out any gallstone abnormalities. This work-up needs to be done now in case patient starts to develop abdominal symptoms because patient will be less willing to present during the snowy season. If the patient does develop abdominal symptoms later on the gallbladder ultrasound may be referenced to understand her abdominal state of health at this time during elevation of his alkaline phosphatase. PLAN OF TREATMENT Medication Medication Name Sig Start Date Stop Date Chlorthalidone 25 MG TAKE ONE TABLET BY MOUTH TAI RY DAY IN THE MORNING Orally Once a day for 90 days Treatment Notes Assessment Notes Clinical Notes Elevated alkaline phosphatase level Sinc e alkaline phosphatase may be elevated due to bone etiology (cancer), fractionated alkaline phosphatase has been ordered. Although patient does not have any nausea, vomiting, diarrhea at this time gallbladder ultrasound has been ordered to rule out any gallstone abnormalities. This work-up needs to be done now in case patient starts to develop abdominal symptoms because patient will be less willing to present during the snowy season. If the patient does develop abdominal symptoms later on the gallbladder ultrasound may be referenced to understand her abdominal state of health at this time during elevation of his alkaline phosphatase. Treatment Notes Test Name Order Date PLZ GALLBLADDER U/S 2021-01-21 Next Appt Details 4 Weeks Reason:Elevated alkaline phospha tase Provider Name:Clemente Tejadahawa, 02-28 02:30:00 PM, [address] [facility], , [place], [address], Follow Up:4 WeeksElevated alkaline phosphatase Insurance Providers Payer Name Payer Address Payer Phone Insured Name Patient Relati onship to Insured Coverage Start Date Coverage End Date [employer] [facility] [address] [address] [facility] [phone] [place] COFFMAN self
--- OUTSIDE RECORDS SUMMARY | 2021-05-03 18:33 | CCD ---
Author Author [facility] Organization [facility] Address Unknown Phone Unavailable Care Team Providers Care Electric Motor Winders Assembler Name Role Phone Pricilla, Clemente Unavailable PROBLEMS Type Condition ICD9-CM Code [id number] Code Onset Dates Condition S tatus W/U Status Risk SNOMED Code Notes Problem Smoker F17.200 Active confirmed 85822318 Problem Mixed hyperlipidemia E78.2 Active confirmed 106679147 Problem Insomnia, unspecified type G47.00 Active confirmed 505867533 Problem Dyslipidemia E78.5 Active confirmed 3531157 07 Problem Psychophysiological insomnia F51.04 Active confirme d 29070361 Problem Hypertension, unspecified type I10 Active confir med 50661923 Problem Stress bladder incontinence, female N39.3 Acti ve confirmed 90808938 Problem Nicotine dependence with current use F17.200 Act monty confirmed [id number] ALLERGIES Allergen (clinical drug ingredient) Drug/Non Drug Allergy do cumented on EMR Reaction Allergy Type Onset Date Status Penicillin (For Allergies Use Only) Hives Drug Allerg y Active ENCOUNTERS from 1940 to 2021-04-30 Encounter Location Date Provider Diagnosis [address] [phone] [place] [address] Apr, Clemente Pleitez Hypertension, unspecified ty pe I10 IMMUNIZATIONS Vaccine Route Administration Date Status Influenza [...] Education Language: Question Answer Notes Languages spoken: Greenlandic Restorationist: Question Answer Notes Restorationist No jehovah's witness beliefs that would impact health care. Sexual [...] Notes Treatment Notes Treatm ent Clinical Notes Apr, Hypertension, unspecified type (ICD-10 - I10) PLAN OF TREATMENT Medication Medication Name Sig [...] 90 days Next Appt Details Provider Name:Clemente Lawrence Pricilla, 2020-06 03:30:00 PM, [address] [facility], , [place], [address], Insurance Providers Payer Name Payer Address Payer Phone Insured Name Patient Relati onship to Insured Coverage Start Date Coverage End Date [facility] [address] [address] [facility] [address] [phone] MIL[place] COFFMAN self
--- OUTSIDE RECORDS SUMMARY | 2021-05-03 18:33 | CCD ---
Author Author [facility] Organization [facility] Address Unknown Phone Unavailable Care Team Providers Care Sports Nutritionist Name Role Phone PricillaClemente Unavailable PROBLEMS Type Condition ICD9-CM Code [id number] Code Onset Dates Condition S tatus W/U Status Risk SNOMED Code Notes Problem Smoker F17.200 Active confirmed 07017646 Problem Mixed hyperlipidemia E78.2 Active confirmed 415864417 Problem Insomnia, unspecified type G47.00 Active confirmed 283134738 Problem Dyslipidemia E78.5 Active confirmed 2866181 07 Problem Psychophysiological insomnia F51.04 Active confirme d 19844377 Problem Hypertension, unspecified type I10 Active confir med 42325095 Problem Stress bladder incontinence, female N39.3 Acti ve confirmed 62713597 Problem Nicotine dependence with current use F17.200 Act monty confirmed [id number] ALLERGIES Allergen (clinical drug ingredient) Drug/Non Drug Allergy do cumented on EMR Reaction Allergy Type Onset Date Status Penicillin (For Allergies Use Only) Hives Drug Allerg y Active ENCOUNTERS from 1940 to 2021-03-14 Encounter Location Date Provider Diagnosis [facility] Resident [address] [facility] [address] [phone] [place] [address] Jan, Clemente Pleitez IMMUNIZATIONS Vaccine Route Administration Date [...] Education Language: Question Answer Notes Languages spoken: Irish Mormonism: Question Answer Notes Mormonism No sabianist beliefs that would impact health care. Sexual [...] Information RESULTS No Results REASON FOR VISIT Clinic Visit for Ongoing Care MEDICAL (GENERAL) HISTORY Type Description Date Medical [...] MG TAKE ONE TABLET BY MOUTH TAI DAY IN THE MORNING Orally Once a day for 90 days Next Appt Details Provider Name:Clemente Pleitez, 2020-06 03:30:00 PM, [address] [facility], , [place], [address], Insurance Providers Payer Name Payer Address Payer Phone Insured Name Patient Relati onship to Insured Coverage Start Date Coverage End Date [facility] [address] [address] [facility] [address] [phone] MILAG[address] COFFMAN self
--- OUTSIDE RECORDS SUMMARY | 2021-05-03 18:33 | CCD ---
Author Author [facility] Organization [facility] Address Unknown Phone Unavailable Care Team Providers Care Network Engineering Advisor Name Role Phone Pricilla, Clemente Unavailable PROBLEMS Type Condition ICD9-CM Code [id number] Code Onset Dates Condition S tatus W/U Status Risk SNOMED Code Notes Problem Hypertension, unspecified type I10 Active confir med 11772760 Problem Psychophysiological insomnia F51.04 Active confirme d 59639624 Problem Mixed hyperlipidemia E78.2 Active confirmed 688893360 Problem Fatty liver disease, nonalcoholic K76.0 Active confirmed 920888066 Problem Smoker F17.200 Active confirmed 19835899 Problem Calculus of gallbladder without cholecystitis wi thout obstruction K80.20 Active confirmed 61946713 Problem Stress bladder incontinence, female N39.3 Acti ve confirmed 86176564 Problem Nicotine dependence with current use F17.200 Act monty confirmed 562829632 Problem Insomnia, unspecified type G47.00 Active confirmed 588597975 Problem Dyslipidemia E78.5 Active confirmed 4182145 07 ALLERGIES Allergen (clinical drug ingredient) Drug/Non Drug Allergy do cumented on EMR Reaction Allergy Type Onset Date Status Penicillin (For Allergies Use Only) Hives Drug Allerg y Active ENCOUNTERS from 1940 to 2021-05-01 Encounter Location Date Provider Diagnosis [facility] [place] [address] [facility] [address] [phone] [place] [address] Apr, 2021 Clemente Pleitez Fatty liver disease, nonalcoholic K76.0 ; Calculus of gallbladder without cholecystitis without obstruction K80.20 ; Immunization due Z23 ; Elevated alkaline phosphatase level R74.8 and Low blood pressure, not hypotension R03.1 IMMUNIZATIONS Vaccine Route Administration Date Status Influenza [...] Education Language: Question Answer Notes Languages spoken: Swedish Bahai: Question Answer Notes Bahai No latter day beliefs that would impact health care. Sexual [...] FOR REFERRAL No Information VITAL SIGNS Weight 163 lbs Apr, Weight-kg 73.94 kg Apr, Height 66 in Apr, BMI 26.31 kg/m2 Apr, Heart Rate 74 /min Apr, Respiratory Rate 18 /min Apr, Temperature 97.5 degrees Fahrenheit Apr, Oximetry 98 Apr, Blood pressure systolic 100 mm Hg Apr, Blood pressure diastolic 62 mm Hg Apr, MEDICATIONS Medication SIG (Take, Route, Frequency, Duration) Notes Start Da te End Date Status Metoprolol Tartrate 25 mg take one tablet by mouth twi ce a day with food Orally Daily for 90 days Active Pravastatin Sodium 40 MG 1 tablet Orally Once a day Active Blood Pressure Kit - as directed Apr, A ctive Blood Pressure Cuff - as directed Apr, Active Losartan Potassium 50 MG 1 tablet Orally Once a day for 90 day(s) Active Triamcinolone Acetonide 0.1 % 1 gm to each area the si ze of your hand to rash Externally Twice a day for 14 day(s) Dec, Not-Taking Triamcinolone Acetonide 0.025 % 1 application to face Externally Twice a day as needed for itching for 14 day(s) Apply to rash twice daily until skin oswald ars, but no longer than 3 weeks. Do not apply for repeated doses without discussing with your doctor. Active Aspirin 81 MG 1 tablet Orally Once a day Mar, Active Chlorthalidone 25 MG TAKE ONE TABLET BY MOUTH TAI RY DAY IN THE MORNING Orally Once a day for 90 days Active traZODone HCl 50 MG 1 tablet at bedtime as neede d Orally Once a day for 30 day(s) Aug, Not-Taking Lubriderm - as directed Externally Daily all over body and f gagandeep for 30 day(s) Mar, Active PROCEDURES No Information RESULTS No Results REASON FOR VISIT due for a follow up visit MEDICAL (GENERAL) HISTORY Type Description Date Medical [...] Treatment Notes Treatm ent Clinical Notes Apr, Fatty liver disease, nonalcoholic (ICD-10 - K76. 0) Patient has a history of fatty liver disease. Patient was offered Wright FibroSure testing which the patient refused. Patient was also offered gastroenterology input to slow down progression of fatty liver disease. The patient declined at this time. Patient reports that she will continue taking her statin medications at this time. Patient was also advised that diet heavy in fats and simple carbs will increase fatty liver disease. Patient verbalized understanding. Patient reports that her goal of health care at this time is to care for her symptoms and as she is asymptomatic at this time she would not like any medical intervention at this time. Apr, Calculus of gallbladder with out cholecystitis without obstruction (ICD-10 - K80.20) Patient has asymptomatic cholelithiasis. Patient was counseled on the symptoms that can develop with cholecystitis. Patient was advised to present immediately to the ER if she developed fevers, chills, night sweats, nausea, vomiting, abdominal discomfort with eating as if gallstone were to dislodge from the gallbladder and causing obstruction in the GI tract, this would pose complications. Patient verbalized understanding. The patient reported that she would not like to see surgery at this time. Apr, Immunization due (ICD-10 - Z23) Patient was advised to get the Covid booster as she is immunologically vulnerable to the Covid infection. Patient verbalized understanding. Patient states that she will be going to kidneys to get this shot. Patient was also advised to get the flu shot. Patient verbalized understanding. Patient's last Covid vaccine was August 14, 2020. She received Materna #1 and #2. Apr, Elevated alkaline phosphatase level (ICD-10 - R7 4.8) Patient has a history of chronic kidney disease stage IIIa. Patient likely has elevated parathyroid hormone secondary to this and/or elevated parathyroid hormone from low vitamin D. Vitamin D level, PTH intact have been ordered. Patient will be supplemented with vitamin D if vitamin D level is low. This is likely leading to bone breakdown causing alkaline phosphatase elevation. GGT level was normal therefore even though the patient's alkaline phosphatase fractionated level is right in between liver and bony etiology, this is likely bony due to normal GGT level. Apr, Low blood pressure, not hypotension (ICD-10 - R0 3.1) Patient's blood pressure is soft in the office systolic of 100. Patient is on chlorthalidone, metoprolol, and losartan. Telephone encounter has been started to appreciate when the patient is taking these 3 medications. Ideally, the patient should be taking chlorthalidone in the morning and losartan at night. Nursing staff will be advised to call the patient to do blood pressure checks twice a day in the morning and at night at home. Blood pressure kit has been sent to the pharmacy. If the patient's blood pressure readings are soft at home, I will speak with the patient to possibly decrease the chlorthalidone dose to 12.5 mg. But this will not be done until patient has reported to me her blood pressures at home. PLAN OF TREATMENT Medication Medication Name Sig Start Date Stop Date Blood Pressure Kit - as directed Apr, Blood Pressure Cuff - as directed Apr, Treatment Notes Assessment Notes Clinical Notes Fatty liver disease, nonalcoholic Patien t has a history of fatty liver disease. Patient was offered Wright FibroSure testing which the patient refused. Patient was also offered gastroenterology input to slow down progression of fatty liver disease. The patient declined at this time. Patient reports that she will continue taking her statin medications at this time. Patient was also advised that diet heavy in fats and simple carbs will increase fatty liver disease. Patient verbalized understanding. Patient reports that her goal of health care at this time is to care for her symptoms and as she is asymptomatic at this time she would not like any medical intervention at this time. Calculus of gallbladder without cholecystitis without obstru ction Patient has asymptomatic cholelithiasis. Patient was counseled on the symptoms that can develop with cholecystitis. Patient was advised to present immediately to the ER if she developed fevers, chills, night sweats, nausea, vomiting, abdominal discomfort with eating as if gallstone were to dislodge from the gallbladder and causing obstruction in the GI tract, this would pose complications. Patient verbalized understanding. The patient reported that she would not like to see surgery at this time. Immunization due Patient was advised to get the Covid booster as she is immunologically vulnerable to the Covid infection. Patient verbalized understanding. Patient states that she will be going to kidneys to get this shot. Patient was also advised to get the flu shot. Patient verbalized understanding. Patient's last Covid vaccine was August 14, 2020. She received Materna #1 and #2. Elevated alkaline phosphatase level Gricelda ent has a history of chronic kidney disease stage IIIa. Patient likely has elevated parathyroid hormone secondary to this and/or elevated parathyroid hormone from low vitamin D. Vitamin D level , PTH intact have been ordered. Patient will be supplemented with vitamin D if vitamin D level is low. This is likely leading to bone breakdown causing alkaline phosphatase elevation. GGT level was normal therefore even though the patient's alkaline phosphatase fractionated level is right in between liver and bony etiology, this is likely bony due to normal GGT level. Low blood pressure, not hypotension Gricelda ent's blood pressure is soft in the office systolic of 100. Patient is on chlorthalidone, metoprolol, and losartan. Telephone encounter has been started to appreciate when the patient is taking these 3 medications. Ideally, the patient should be taking chlorthalidone in the morning and losartan at night. Nursing staff will be advised to call the patient to do blood pressure checks twice a day in the morning and at night at home. Blood pressure kit has been sent to the pharmacy. If the patient's blood pressure readings are soft at home, I will speak with the patient to possibly decrease the chlorthalidone dose to 12.5 mg. But this will not be done until patient has reported to me her blood pressures at home. Pending Tests Test Name Order Date PTH INTACT 2021-04-30 VITAMIN D 25-HYDROXY 2021-04-30 Next Appt Details 6 Months Reason:Follow-up preventative c are Follow Up:6 MonthsFollow-up preventative care Insurance Providers Payer Name Payer Address Payer Phone Insured Name Patient Relati onship to Insured Coverage Start Date [facility]age End [facility] [address] [address] [facility] [phone] [phone] [address] COFFMAN self
--- OUTSIDE RECORDS SUMMARY | 2021-05-03 18:33 | CCD ---
Author Author [facility] Organization [facility] Address Unknown Phone Unavailable Care Team Providers Care Garbage Collector Name Role Phone PricillaClemente Unavailable PROBLEMS Type Condition ICD9-CM Code [id number] Code Onset Dates Condition S tatus W/U Status Risk SNOMED Code Notes Problem Smoker F17.200 Active confirmed 96339294 Problem Mixed hyperlipidemia E78.2 Active confirmed 969339037 Problem Insomnia, unspecified type G47.00 Active confirmed 105021436 Problem Dyslipidemia E78.5 Active confirmed 4860213 07 Problem Psychophysiological insomnia F51.04 Active confirme d 38633864 Problem Hypertension, unspecified type I10 Active confir med 94080273 Problem Stress bladder incontinence, female N39.3 Acti ve confirmed 45047394 Problem Nicotine dependence with current use F17.200 Act monty confirmed [id number] ALLERGIES Allergen (clinical drug ingredient) Drug/Non Drug Allergy do cumented on EMR Reaction Allergy Type Onset Date Status Penicillin (For Allergies Use Only) Hives Drug Allerg y Active ENCOUNTERS from 1940 to 2021-02-05 Encounter Location Date Provider Diagnosis [facility] Resident [address] [facility] [address] [phone] [place] [address] Dec, Clemente Pleitez IMMUNIZATIONS Vaccine Route Administration Date [...] Education Language: Question Answer Notes Languages spoken: Arabic Holiness: Question Answer Notes Holiness No spiritism beliefs that would impact health care. Sexual [...] Information RESULTS No Results REASON FOR VISIT Fractionated alkaline phosphatase lab value added to work-up MEDICAL (GENERAL) HISTORY Type Description Date Medical [...] days Next Appt Details Provider Name:Clemente Pleitez, 02-26 09:30:00 AM, [address] [facility], , [place], [address], Insurance Providers Payer Name Payer Address Payer Phone Insured Name Patient Relati onship to Insured Coverage Start Date Coverage End Date [facility] [address] [address] [facility] [phone] MILAGRO COFFMAN self
--- OUTSIDE RECORDS SUMMARY | 2021-05-03 18:33 | CCD ---
Author Author [facility] Organization [facility] Address Unknown Phone Unavailable Care Team Providers Care Production Underwriter Name Role Phone Pricilla, Clemente Unavailable PROBLEMS Type Condition ICD9-CM Code YSB64-UB Code Onset Dates Condition S tatus W/U Status Risk SNOMED Code Notes Problem Smoker F17.200 Active confirmed 90589397 Problem Mixed hyperlipidemia E78.2 Active confirmed 655644805 Problem Insomnia, unspecified type G47.00 Active confirmed 211152751 Problem Dyslipidemia E78.5 Active confirmed 1595674 07 Problem Psychophysiological insomnia F51.04 Active confirme d 60201195 Problem Hypertension, unspecified type I10 Active confir med 77439746 Problem Stress bladder incontinence, female N39.3 Acti ve confirmed 95631190 Problem Nicotine dependence with current use F17.200 Act monty confirmed [id number] ALLERGIES Allergen (clinical drug ingredient) Drug/Non Drug Allergy do cumented on EMR Reaction Allergy Type Onset Date Status Penicillin (For Allergies Use Only) Hives Drug Allerg y Active ENCOUNTERS from 1940 to 2021-04-17 Encounter Location Date Provider Diagnosis [address] [phone] [place] [address] Apr, Clemente Pleitez Hypertension, unspecified ty pe [...] Education Language: Question Answer Notes Languages spoken: Georgian Adventist: Question Answer Notes Adventist No sabianist beliefs that would impact health [...] Information RESULTS No Results REASON FOR VISIT meds refill MEDICAL (GENERAL) HISTORY Type Description Date Medical History Erysipelas Medical History Breast Cancer s/p mastectomy, 1999 Medical History HTN, Goal of < 150/90 [...] Provider Name:Clemente Pleitez, 2020-06 03:30:00 PM, [address] [facility], , [place], [address], Insurance Providers Payer Name Payer Address Payer Phone Insured Name Patient Relati onship to Insured Coverage Start Date Coverage End Date [facility] [address] [address] [facility] [phone] MILAGRO COFFMAN self
[2021-05-04 02:31] LABS: RSV AMPLIFICATION NEGATIVE (NEGATIVE)
[2021-05-04 02:39] LABS: BASO # 0.1 10^3/uL (0.0-0.2); BASO % 0.4 % (0.0-1.0); EOS % 0.3 % (0.0-3.0); HEMATOCRIT 42.6 % (36.0-47.0); HEMOGLOBIN 13.9 g/dl (12.0-15.5); LYMPH # 0.9 10^3/uL (1.5-5.0); LYMPH % 6.5 % (24.0-44.0); MEAN CORPUSCULAR HGB CONC 32.6 g/dl (32.0-36.5); MEAN CORPUSCULAR VOLUME 82.9 fl (80.0-96.0); MONO # 0.9 10^3/uL (0.0-0.8); MONO % 6.4 % (2.0-8.0); NEUTROPHILS # 12.1 10^3/uL (1.5-8.5); PLATELET COUNT, AUTOMATED 248 10^3/uL (150-450); RED BLOOD COUNT 5.14 10^6/uL (4.00-5.40)
--- NOTE | 2021-05-04 02:44 | REPVR ---
PROCEDURE INFORMATION: Exam: CT Head Without Contrast Exam date and time: 05/04/2021 1:08 AM Age: 80 years old Clinical indication: Injury or trauma; Fall; Blunt trauma (contusions or hematomas) TECHNIQUE: Imaging protocol: Computed tomography of the head without contrast. Radiation optimization: All CT scans at this facility use at least one of these dose optimization techniques: automated exposure control; mA and/or kV adjustment per patient size (includes targeted exams where dose is matched to clinical indication); or iterative reconstruction. COMPARISON: No relevant prior studies available. FINDINGS: Brain: No acute intracranial hemorrhage is seen. No mass effect, midline shift, or herniation is noted. There is no CT evidence for an acute large vessel territorial infarct. There are mild non-specific foci of low attenuation in the periventricular white matter, which are likely the sequela of chronic small vessel ischemic injury. Cerebral ventricles: The ventricles are moderately dilated in proportion to the sulci, which is compatible with moderate generalized cerebral volume loss. Paranasal sinuses: The sinuses are well-aerated. No air-fluid levels are noted in the sinuses. Mastoid air cells: There is a small amount of fluid in the right mastoid air cells. The left mastoid air cells are well aerated. Orbital cavity: The globes are intact. Incidental note is made of bilateral lens implants. The left infraorbital foramen is prominent. Vasculature: There are atherosclerotic calcifications of the intracranial portion of the internal carotid arteries. Bones/joints: The skull is intact. No suspicious osteolytic or osteoblastic lesion. Soft tissues: Unremarkable. No soft tissue fluid collection. IMPRESSION: 1. No acute intracranial hemorrhage or acute intracranial abnormality. 2. Moderate cerebral volume loss and chronic microangiopathic changes. Electronically signed by: Trung Bryan On 05/04/2021 02:43:52 AM
--- NOTE | 2021-05-04 02:44 | REPVR ---
PROCEDURE INFORMATION: Exam: CT Cervical Spine Without Contrast Exam date and time: 05/04/2021 1:08 AM Age: 80 years old Clinical indication: Injury or trauma; Fall; Blunt trauma TECHNIQUE: Imaging protocol: Computed tomography images of the cervical spine without contrast. Radiation optimization: All CT scans at this facility use at least one of these dose optimization techniques: automated exposure control; mA and/or kV adjustment per patient size (includes targeted exams where dose is matched to clinical indication); or iterative reconstruction. COMPARISON: No relevant prior studies available. FINDINGS: Bones/joints: The alignment of the cervical spine is within normal limits. There is no fracture or subluxation. The vertebral body heights are preserved. No suspicious osteolytic or osteoblastic lesion is noted. There is no cervical rib. Discs/Spinal canal/Neural foramina: The C2-C3 and C3-C4 levels are unremarkable. At the C4-C5 level, there is severe loss of disc height, a broad-based posterior disc osteophyte complex that is eccentric to the left, left uncovertebral hypertrophy, endplate spurs projecting anteriorly, mild spinal canal stenosis, and moderate left neural foraminal stenosis. At the C5-C6 level, there is severe loss of disc height, a broad-based posterior disc osteophyte complex, left greater than right uncovertebral hypertrophy, endplate spurs projecting anteriorly, mild spinal canal stenosis, moderate left neural foraminal stenosis, and minimal right neural foraminal stenosis. At the C6-C7 level, there are endplate spurs projecting anteriorly. At the C7-T1 level, there is mild osteoarthritis of the facet joints and endplate spurs projecting anteriorly. The T1-T2 level is unremarkable. At the T2-T3 level, there is moderate osteoarthritis of the right facet joint. Prevertebral Space: No prevertebral soft tissue swelling. Lungs: The imaged lung apices are clear. The lungs were not fully imaged. Vasculature: There are atherosclerotic calcifications of the carotid bulbs. Soft tissues: Unremarkable. No soft tissue fluid collection. Other findings: There is sclerosis along the inferior aspect of both 1st ribs, which may represent melorheostosis or calcified pleural plaques. IMPRESSION: 1. No fracture or subluxation in the cervical spine. 2. C4-C5: Mild spinal canal stenosis and moderate left neural foraminal stenosis. 3. C5-C6: Mild spinal canal stenosis, moderate left neural foraminal stenosis, and minimal right neural foraminal stenosis. Electronically signed by: Trung Bryan On 05/04/2021 02:43:34 AM
[2021-05-04] MEDS ORDERED: POTASSIUM CHLORIDE 10MEQ SR TABLET PO ONE (02:55)
[2021-05-04 03:10] LABS: THYROID STIMULATING HORMONE 1.41 uIU/ML (0.358-3.740)
--- NOTE | 2021-05-04 03:17 | REPVR ---
PROCEDURE INFORMATION: Exam: XR Chest Exam date and time: 05/04/21 (1:00am) Age: 80 years old Clinical indication: Fall. Syncope. TECHNIQUE: Imaging protocol: Portable CXR Views: 1 view COMPARISON: CT CERVICAL SPINE of 05/04/21 FINDINGS: Lungs: Unremarkable. No consolidation. Pleural spaces: Unremarkable. No pleural effusions. No pneumothorax. Heart/Mediastinum: Unremarkable. No cardiomegaly. Bones/joints: Unremarkable. Other findings: Multiple surgical clips in the right axillary region and right lower lateral chest wall / right breast. IMPRESSION: No acute findings. Electronically signed by: Eunice Logan On 05/04/2021 03:16:32 AM
[2021-05-04] MEDS ORDERED: NS 1,000 ML IV ONE (03:30)
[2021-05-04 04:02] LABS: APPEARANCE, URINE CLOUDY (CLEAR); BACTERIA, URINE AUTO 2+ (NEGATIVE); BILIRUBIN, URINE AUTO NEGATIVE (NEGATIVE); BLOOD, URINE BLOOD 2+ (NEGATIVE); COLOR, URINE AMBER (YELLOW); GLUCOSE, URINE (UA) AUTO NEGATIVE (NEGATIVE); KETONE, URINE AUTO 1+ mg/dL (NEGATIVE); LEUKOCYTE ESTERASE, URINE AUTO 2+ (NEGATIVE); MUCUS, URINE SMALL (NEGATIVE); NITRITE, URINE AUTO NEGATIVE (NEGATIVE); PROTEIN, URINE AUTO 1+ mg/dL (NEGATIVE); RBC, URINE AUTO 7 /HPF (0-3); SQUAMOUS EPITHELIAL CELL UR AU 4 /HPF (0-6); WBC, URINE AUTO 25 /HPF (0-3)
--- OUTSIDE RECORDS SUMMARY | 2021-05-04 04:09 | CCD ---
Author Author [facility] Organization [facility] Address Unknown Phone Unavailable Support Name Relationship Address Phone LUIS FERNANDO GARNER Next Of Kin [address] [place] [address] LUIS FERNANDO POE Next Of Kin [address] [place] [id number] RETIRED Next Of Kin Unknown ORQUIDEA GARNER Next Of Kin [address] [facility] [place] [address] RE Next Of Kin Unknown Unavailable ORQUIDEA POE Next Of Kin [address] [place] [address] LUIS FERNANDO GARNER ECON Unknown Unavailable Orquidea Garner ECON [address] [place] [address] Unavailable Orquidea Poe ECON Unknown [phone] Re-disclosure Warning The records that you are [...] is protected by Article 27-F of the [place] State Public Health law. If you continue you may have access to information: Regarding HIV / AIDS; Provided by facilities licensed or operated by the [facility] Office of Mental Health; or Provided by the [facility] Office for People With Developmental Disabilities. If such information is present, then the following [facility] mandated warning applies: This information has been [...] law may result in a fine or care home sentence or both. A general authorization for [...] Visit, Est Pt., Level 3 FC [address] [place] [address] 04/30/2021 12:00:00 AM EST eCW1 ([facility]) Unknown [address] [facility] [id number] 04/29/2021 12:00:00 AM EST eCW1 ([facility]) Unknown [address] [facility] [address] 04/17/2021 12:00:00 AM EST eCW1 [facility] Unknown [address] [facility] [id number] 04/15/2021 12:00:00 AM EST eCW1 [facility] Unknown [address] [facility] [address] 02/11/2021 12:00:00 AM EDT eCW1 ([facility]) Unknown [address] [facility] [id number] 01/28/2021 12:00:00 AM EDT eCW1 ([facility]) Outpatient [address] [facility] [id number] 01/21/2021 12:00:00 AM EDT eCW1 ([facility]) [place] [address] [facility] [address] 01/21/2021 12:00:00 AM EDT eCW1 ([facility]) [place] [address] [facility] [address] 09/25/2020 12:00:00 AM EDT eCW1 ([facility]) [place] [address] [facility] [address] 08/13/2020 12:00:00 AM EDT eCW1 ([facility]) [place] [address] [facility] [address] 05/18/2020 12:00:00 AM EST eCW1 ([facility]) [place] [address] [facility] [address] 03/06/2020 12:00:00 AM EDT eCW1 ([facility]) Immunizations Vaccine Date Status Description Data Source(s) COVID-19 VACCINE Moderna 08/14/2020 12:00:00 AM EDT completed [facility] Vaccine Series Complete: YESThis Data wa s Submitted to [facility] Via [employer]. COVID-19 VACCINE Moderna 07/17/2020 12:00:00 AM EST completed [facility] Vaccine Series Complete: NOThis Data was Submitted to [facility] Via [employer]. Medications Medication Brand Name Start Date Product Form Dose Route Admi nistrative Instructions Pharmacy Instructions Status Indications Reaction Description Data Source(s) Blood Pressure Kit - Blood Pressure Kit - 04/30/2021 12:00:00 AM EST active Blood Pressure Kit - eCW1 ([facility]) Blood Pressure Cuff - Blood Pressure Cuff - 04/30/2021 12:00:00 AM EST active Blood Pressure Cuff - eCW1 ( [facility]) 25 mg 04/17/2021 12:00:00 AM EST tablet [...] type / Coverage type Policy ID Covered democrat ID Covered democrat's relationship to ruff Policy Ruff Plan Information MEDICARE COMPLETE [id number] SP [id number] MEDICARE COMPLETE [id number] SP [id number] MEDICARE COMPLETE [id number] SP [id number] TOD[employer] OPTIONS [id number] SP [id number] [facility] [id number] SP [id number] [place] [id number] [place] [id number] ANSI-Medicare Part B [id number] ANSI-Health Maintenance Organization (HM O) [id number] ANSI-Medicare Part B [id number] ANSI-Medicare Part B [id number] ANSI-Medicare Part B [id number] ANSI-Medicare Part B [id number] ANSI-Medicare Part B [id number] ANSI-Medicare Part B [id number] ANSI-Medicare Part B [id number] ANSI-Medicare Part B [id number] TODA[employer] OPTIONS/SOMALI O [id number] S [id number] MEDICARE COMPLETE [id number] SP [id number] MEDICARE COMPLETE [id number] SP [id number] MEDICARE COMPLETE [id number] SP [id number] [facility] Medicare Commercial [id number] Self [id number] [facility] Medicare Commercial [id number] Self [id number] MEDICARE COMPLETE[facility] O [id number] O [id number] MEDICARE COMPLETE[facility] P [id number] S [id number] [employer] [id number] SP [id number] [employer] OPTIONS [id number] [place] [id number] ANSI-Medicare Part B [id number] ANSI-Health Maintenance Organization (HM O) [id number] ANSI-Medicare Part B [id number] ANSI-Medicare Part B [id number] Problems, Conditions, and Diagnoses Code Display Name Description Problem Type Effective Dates Data Source(s) K80.20 [id number] Calculus of gallblad elieser without cholecystitis without obstruction Problem 04/30/2021 12:00:00 AM EST eCW1 ([facility]) K76.0 [id number] Fatty liver disease, nonalcoholic Problem 04/30/2021 12:00:00 AM EST eCW1 ([facility]) Surgeries/Procedures No Information Results ID Date Data Source ALK PHOS FRACTIONATED 01/28/2021 12:00:00 AM EDT eCW1 ([facility]) Name Value Range Interpretation Code Description Data Pooja rce(s) Supporting Document(s) 90 LABILE ALKPHOS eCW1 ([facility]) 67.16 % LABILE ALKALINE PHOSPHATASE eCW1 ([facility]) 44 STABLE ALKPHOS eCW1 ([facility]) Procedure Social History Code Duration Value Status Description Data Source(s ) Smoking 04/30/2021 12:00:00 AM EST Current Smoker completed Curre nt Smoker eCW1 ([facility]) Smoking 01/21/2021 12:00:00 AM EDT Current Smoker completed Curre nt Smoker eCW1 ([facility]) Smoking 01/21/2021 12:00:00 AM EDT Current Smoker completed Curre nt Smoker eCW1 ([facility]) Smoking 01/21/2021 12:00:00 AM EDT Current Smoker completed Curre nt Smoker eCW1 ([facility]) Smoking 01/21/2021 12:00:00 AM EDT Current Smoker completed Curre nt Smoker eCW1 ([facility]) Smoking 01/21/2021 12:00:00 AM EDT Current Smoker completed Curre nt Smoker eCW1 ([facility]) Smoking 01/21/2021 12:00:00 AM EDT Current Smoker completed Curre nt Smoker eCW1 ([facility]) Smoking 01/21/2021 12:00:00 AM EDT Current Smoker completed Curre nt Smoker eCW1 ([facility]) Smoking 09/24/2020 12:00:00 AM EDT Current Smoker completed Curre nt Smoker eCW1 ([facility]) Smoking 08/13/2020 12:00:00 AM EDT Current Smoker completed Curre nt Smoker eCW1 ([facility]) Smoking 03/06/2020 12:00:00 AM EDT Current Smoker completed Curre nt Smoker eCW1 ([facility]) Smoking 03/06/2020 12:00:00 AM EDT Current Smoker completed Curre nt Smoker eCW1 ([facility]) Vital Signs ID Date Data Source UNK Name Value Range Interpretation Code Description Data Source(s) Heart rate 74 /min 74 /min eCW1 ([facility]) Body weight 163 [lb_av] 163 [lb_av] eCW1 ([facility]) Body weight 73.94 kg 73.94 kg eCW1 ([facility]) Body height 66 [in_i] 66 [in_i] eCW1 ([facility]) Body mass index (BMI) [Ratio] 26.31 kg/m2 26.31 kg/m2 eCW1 ([facility]) Respiratory rate 18 /min 18 /min eCW1 ([facility]) Body temperature 97.5 [degF] 97.5 [degF] eCW1 ( [facility]) Systolic blood pressure 100 mm[Hg] 100 mm[Hg] e CW1 ([facility]) Diastolic blood pressure 62 mm[Hg] 62 mm[Hg] eCW1 ([facility]) Body weight 170.4 [lb_av] 170.4 [lb_av] eCW1 ([facility]) Systolic blood pressure 118 mm[Hg] 118 mm[Hg] e CW1 ([facility]) Diastolic blood pressure 78 mm[Hg] 78 mm[Hg] eCW1 ([facility]) Body weight 77.29 kg 77.29 kg eCW1 ([facility]) Body height 66 [in_i] 66 [in_i] eCW1 ([facility]) Body mass index (BMI) [Ratio] 27.50 kg/m2 27.50 kg/m2 eCW1 ([facility]) Heart rate 75 /min 75 /min eCW1 ([facility]) Respiratory rate 18 /min 18 /min eCW1 ([facility]) Body temperature 97.8 [degF] 97.8 [degF] eCW1 ( [facility]) Body weight 178 [lb_av] 178 [lb_av] eCW1 ([facility]) Body height 66 [in_i] 66 [in_i] eCW1 ([facility]) Body mass index (BMI) [Ratio] 28.73 kg/m2 28.73 kg/m2 eCW1 ([facility]) Heart rate 61 /min 61 /min eCW1 ([facility]) Respiratory rate 18 /min 18 /min eCW1 ([facility]) Body temperature 97.9 [degF] 97.9 [degF] eCW1 ( [facility]) Systolic blood pressure 122 mm[Hg] 122 mm[Hg] e CW1 ([facility]) Diastolic blood pressure 82 mm[Hg] 82 mm[Hg] eCW1 ([facility]) Diastolic blood pressure 84 mm[Hg] 84 mm[Hg] eCW1 ([facility]) Body weight 176 [lb_av] 176 [lb_av] eCW1 ([facility]) Body height 66 [in_i] 66 [in_i] eCW1 ([facility]) Body mass index (BMI) [Ratio] 28.40 kg/m2 28.40 kg/m2 eCW1 ([facility]) Heart rate 66 /min 66 /min eCW1 ([facility]) Respiratory rate 18 /min 18 /min eCW1 ([facility]) Body temperature 97.6 [degF] 97.6 [degF] eCW1 ( [facility]) Systolic blood pressure 120 mm[Hg] 120 mm[Hg] e CW1 ([facility]) Body mass index (BMI) [Ratio] 29.37 kg/m2 29.37 kg/m2 eCW1 ([facility]) Body weight 182 [lb_av] 182 [lb_av] eCW1 ([facility]) Heart rate 70 /min 70 /min eCW1 ([facility]) Body height 66 [in_i] 66 [in_i] eCW1 ([facility]) Respiratory rate 19 /min 19 /min eCW1 ([facility]) Body temperature 98.4 [degF] 98.4 [degF] eCW1 ( [facility]) Systolic blood pressure 116 mm[Hg] 116 mm[Hg] e CW1 ([facility]) Diastolic blood pressure 80 mm[Hg] 80 mm[Hg] eCW1 ([facility]) Patient Treatment Plan of Care Planned Activity Planned Date Details Description Data Source (s) Blood Pressure Cuff - 04/30/2021 12:00:00 AM EST eCW1 ([facility]) Blood Pressure Kit - 04/30/2021 12:00:00 AM EST eCW1 ([facility])
[2021-05-04] MEDS ORDERED: CHLO125TA PO (04:51)
[2021-05-04] MEDS ORDERED: CIPROFLOXACIN 200 MG in IV 1 EA IV ONE (04:55)
[2021-05-04] MEDS ORDERED: ASPI81TA26 PO (04:56)
--- OUTSIDE RECORDS SUMMARY | 2021-05-04 04:58 | CCD ---
Author Author [facility] Organization [facility] Address Unknown Phone Unavailable Support Name Relationship Address Phone LUIS FERNANDO GARNER Next Of Kin [address] [place] [address] LUIS FERNANDO POE Next Of Kin [address] [place] [id number] RETIRED Next Of Kin Unknown ORQUIDEA GARNER Next Of Kin [address] [facility] [place] [address] RE Next Of Kin Unknown Unavailable ORQUIDEA POE Next Of Kin [address] [place] [address] LUIS FERNANDO GARNER ECON Unknown Unavailable Orquidea Garner ECON [address] [place] [address] Unavailable Orquidea Poe ECON Unknown [phone] Re-disclosure Warning The records that you are [...] is protected by Article 27-F of the [place] State Public Health law. If you continue you may have access to information: Regarding HIV / AIDS; Provided by facilities licensed or operated by the [facility] Office of Mental Health; or Provided by the [facility] Office for People With Developmental Disabilities. If such information is present, then the following [facility] mandated warning applies: This information has been [...] law may result in a fine or fpc sentence or both. A general authorization for [...] Visit, Est Pt., Level 3 FC [address] [place] [address] 04/30/2021 12:00:00 AM EST eCW1 ([facility]) Unknown [address] [facility] [address] 04/29/2021 12:00:00 AM EST eCW1 ([facility]) Unknown [address] [facility] [address] 04/17/2021 12:00:00 AM EST [facility]) Unknown [address] [facility] [address] 04/15/2021 12:00:00 AM EST eCW1 ([facility]) Unknown [address] [facility] [address] 02/11/2021 12:00:00 AM EDT eCW1 ([facility]) Unknown [address] [facility] [address] 01/28/2021 12:00:00 AM EDT eCW1 ([facility]) Outpatient [address] [facility] [address] 01/21/2021 12:00:00 AM EDT eCW1 ([facility]) [place] [address] [facility] [address] 01/21/2021 12:00:00 AM EDT eCW1 ([facility]) [place] [address] [facility] [address] 09/25/2020 12:00:00 AM EDT eCW1 ([facility]) [place] [address] [facility] [address] 08/13/2020 12:00:00 AM EDT eCW1 ([facility]) Unknown [address] [facility] [address] 05/18/2020 12:00:00 AM EST eCW1 ([facility]) [place] [address] [facility] [address] 03/06/2020 12:00:00 AM EDT eCW1 ([facility]) Immunizations Vaccine Date Status Description Data Source(s) COVID-19 VACCINE Moderna 08/14/2020 12:00:00 AM EDT completed [facility] Vaccine Series Complete: YESThis Data wa s Submitted to [facility]. COVID-19 VACCINE Moderna 07/17/2020 12:00:00 AM EST completed [facility] Vaccine Series Complete: NOThis Data was Submitted to [facility]. Medications Medication Brand Name Start Date Product Form Dose Route Admi nistrative Instructions Pharmacy Instructions Status Indications Reaction Description Data Source(s) Blood Pressure Kit - Blood Pressure Kit - 04/30/2021 12:00:00 AM EST active Blood Pressure Kit - eCW1 ([facility]) Blood Pressure Cuff - Blood Pressure Cuff - 04/30/2021 12:00:00 AM EST active Blood Pressure Cuff - eCW1 ( [facility]) 25 mg 04/17/2021 12:00:00 AM EST tablet [...] type / Coverage type Policy ID Covered green party ID Covered green party's relationship to ruff Policy Ruff Plan Information MEDICARE COMPLETE [id number] SP [id number] MEDICARE COMPLETE [id number] SP [id number] MEDICARE COMPLETE [id number] SP [id number] [place] [place]IONS [id number] SP [id number] [facility] [id number] SP [id number] [place] [id number] [place] [id number] ANSI-Medicare Part B [id number] ANSI-Health Maintenance Organization (HM O) [id number] ANSI-Medicare Part B [id number] ANSI-Medicare Part B [id number] ANSI-Medicare Part B [id number] ANSI-Medicare Part B [id number] ANSI-Medicare Part B [id number] ANSI-Medicare Part B [id number] ANSI-Medicare Part B [id number] ANSI-Medicare Part B [id number] [employer] OPTIONS/AZERBAIJANI O [id number] S [id number] MEDICARE COMPLETE [id number] SP [id number] MEDICARE COMPLETE [id number] SP [id number] MEDICARE COMPLETE [id number] SP [id number] [facility] Medicare Commercial [id number] Self [id number] [facility] Medicare Commercial [id number] Self [id number] MEDICARE COMPLETE-[facility] O [id number] O [id number] MEDICARE COMPLETE-[facility] P [id number] S [id number] [facility] [id number] SP [id number] [employer] OPTIONS [id number] [place] [id number] ANSI-Medicare Part B [id number] ANSI-Health Maintenance Organization (HM O) [id number] ANSI-Medicare Part B [id number] ANSI-Medicare Part B [id number] Problems, Conditions, and Diagnoses Code Display Name Description Problem Type Effective Dates Data Source(s) K80.20 [id number] Calculus of gallblad elieser without cholecystitis without obstruction Problem 04/30/2021 12:00:00 AM EST eCW1 ([facility]) K76.0 [id number] Fatty liver disease, nonalcoholic Problem 04/30/2021 12:00:00 AM EST eCW1 ([facility]) Surgeries/Procedures No Information Results ID Date Data Source ALK PHOS FRACTIONATED 01/28/2021 12:00:00 AM EDT eCW1 ([facility]) Name Value Range Interpretation Code Description Data Pooja rce(s) Supporting Document(s) 90 LABILE ALKPHOS eCW1 ([facility]) 67.16 % LABILE ALKALINE PHOSPHATASE eCW1 ([facility]) 44 STABLE ALKPHOS eCW1 ([facility]) Procedure Social History Code Duration Value Status Description Data Source(s ) Smoking 04/30/2021 12:00:00 AM EST Current Smoker completed Curre nt Smoker eCW1 ([facility]) Smoking 01/21/2021 12:00:00 AM EDT Current Smoker completed Curre nt Smoker eCW1 ([facility]) Smoking 01/21/2021 12:00:00 AM EDT Current Smoker completed Curre nt Smoker eCW1 ([facility]) Smoking 01/21/2021 12:00:00 AM EDT Current Smoker completed Curre nt Smoker eCW1 ([facility]) Smoking 01/21/2021 12:00:00 AM EDT Current Smoker completed Curre nt Smoker eCW1 ([facility]) Smoking 01/21/2021 12:00:00 AM EDT Current Smoker completed Curre nt Smoker eCW1 ([facility]) Smoking 01/21/2021 12:00:00 AM EDT Current Smoker completed Curre nt Smoker eCW1 ([facility]) Smoking 01/21/2021 12:00:00 AM EDT Current Smoker completed Curre nt Smoker eCW1 ([facility]) Smoking 09/24/2020 12:00:00 AM EDT Current Smoker completed Curre nt Smoker eCW1 ([facility]) Smoking 08/13/2020 12:00:00 AM EDT Current Smoker completed Curre nt Smoker eCW1 ([facility]) Smoking 03/06/2020 12:00:00 AM EDT Current Smoker completed Curre nt Smoker eCW1 ([facility]) Smoking 03/06/2020 12:00:00 AM EDT Current Smoker completed Curre nt Smoker eCW1 ([facility]) Vital Signs ID Date Data Source UNK Name Value Range Interpretation Code Description Data Source(s) Body weight 163 [lb_av] 163 [lb_av] eCW1 ([facility]) Body weight 73.94 kg 73.94 kg eCW1 ([facility]) Body height 66 [in_i] 66 [in_i] eCW1 ([facility]) Body mass index (BMI) [Ratio] 26.31 kg/m2 26.31 kg/m2 W1 ([facility]) Heart rate 74 /min 74 /min eCW1 ([facility]) Respiratory rate 18 /min 18 /min eCW1 ([facility]) Body temperature 97.5 [degF] 97.5 [degF] eCW1 ( [facility]) Systolic blood pressure 100 mm[Hg] 100 mm[Hg] e CW1 ([facility]) Diastolic blood pressure 62 mm[Hg] 62 mm[Hg] eCW1 ([facility]) Body weight 170.4 [lb_av] 170.4 [lb_av] eCW1 ([facility]) Body weight 77.29 kg 77.29 kg eCW1 ([facility]) Body height 66 [in_i] 66 [in_i] eCW1 ([facility]) Systolic blood pressure 118 mm[Hg] 118 mm[Hg] e CW1 ([facility]) Diastolic blood pressure 78 mm[Hg] 78 mm[Hg] eCW1 ([facility]) Body mass index (BMI) [Ratio] 27.50 kg/m2 27.50 kg/m2 eCW1 ([facility]) Heart rate 75 /min 75 /min eCW1 ([facility]) Respiratory rate 18 /min 18 /min eCW1 ([facility]) Body temperature 97.8 [degF] 97.8 [degF] eCW1 ( [facility]) Body weight 178 [lb_av] 178 [lb_av] eCW1 ([facility]) Body height 66 [in_i] 66 [in_i] eCW1 ([facility]) Body mass index (BMI) [Ratio] 28.73 kg/m2 28.73 kg/m2 eCW1 ([facility]) Heart rate 61 /min 61 /min eCW1 ([facility]) Respiratory rate 18 /min 18 /min eCW1 ([facility]) Body temperature 97.9 [degF] 97.9 [degF] eCW1 ( [facility]) Systolic blood pressure 122 mm[Hg] 122 mm[Hg] e CW1 ([facility]) Diastolic blood pressure 82 mm[Hg] 82 mm[Hg] eCW1 ([facility]) Body weight 176 [lb_av] 176 [lb_av] eCW1 ([facility]) Diastolic blood pressure 84 mm[Hg] 84 mm[Hg] eCW1 ([facility]) Body height 66 [in_i] 66 [in_i] eCW1 ([facility]) Body mass index (BMI) [Ratio] 28.40 kg/m2 28.40 kg/m2 eCW1 ([facility]) Heart rate 66 /min 66 /min eCW1 ([facility]) Respiratory rate 18 /min 18 /min eCW1 ([facility]) Body temperature 97.6 [degF] 97.6 [degF] eCW1 ( [facility]) Systolic blood pressure 120 mm[Hg] 120 mm[Hg] e CW1 ([facility]) Body weight 182 [lb_av] 182 [lb_av] eCW1 ([facility]) Body mass index (BMI) [Ratio] 29.37 kg/m2 29.37 kg/m2 eCW1 ([facility]) Heart rate 70 /min 70 /min eCW1 ([facility]) Body height 66 [in_i] 66 [in_i] eCW1 ([facility]) Respiratory rate 19 /min 19 /min eCW1 ([facility]) Body temperature 98.4 [degF] 98.4 [degF] eCW1 ( [facility]) Systolic blood pressure 116 mm[Hg] 116 mm[Hg] e CW1 ([facility]) Diastolic blood pressure 80 mm[Hg] 80 mm[Hg] eCW1 ([facility]) Patient Treatment Plan of Care Planned Activity Planned Date Details Description Data Source (s) Blood Pressure Cuff - 04/30/2021 12:00:00 AM EST eCW1 ([facility]) Blood Pressure Kit - 04/30/2021 12:00:00 AM EST eCW1 ([facility])
[2021-05-04] MEDS ORDERED: HOME MED LIST COMPLETE! XX SCH (05:00)
[2021-05-04] MEDS ORDERED: cefTRIAXone SOD 1 GM in D5W MINI-BAG PLUS 50 ML IV ONE (05:00)
--- NOTE | 2021-05-04 05:09 | HPEPDOC ---
[facility] Medical History & Physical Date of Admission May 04, 2021 Date of Service: May 04, 2021 Primary Care Physician: Clemente Pleitez DO Attending Physician: CONRAD DE LEON MD History and Physical CHIEF COMPLAINT: syncope HISTORY OF PRESENT ILLNESS: Patient is an 80-year-old female who presents with chief complaint of syncope. Patient was brought in by her son is not a great historian. Per the patient, she woke up this morning on the couch and was in her usual state of health and then does not remember the rest of the morning and then was found on the floor of her living room by her nephew. She denies any memory of the incident and even denies passing out. The report I received from the ED provider is that the patient was brought in by her son. She does live alone and her kids periodically will call to check on her however she was not picking up the phone. When he came in to check on her he found her on the ground and unable to stand up. She currently denies any headache, dizziness, lightheadedness, vision changes, chest pain, difficulty breathing, nausea, abdominal pain, constipation, diarrhea, weakness in her arms and legs. PAST MEDICAL HISTORY: Hypertension Hyperlipidemia History of breast cancer s/p mastectomy 1989 PAST SURGICAL HISTORY: Hysterectomy Right mastectomy SOCIAL HISTORY: Active smoker Denies alcohol use. Denies marijuana, heroin, cocaine, PCP, or other illicit drug use. Lives alone FAMILY HISTORY: Reviewed, noncontributory ALLERGIES: Please see below. REVIEW OF SYSTEMS: Constitutional: Denies fevers, chills, night sweats, or recent unexpected weight change HEENT: Denies headaches, head trauma, no visual changes or eye pain, denies nosebleeds or difficulty swallowing. Cardiovascular: Denies chest pain, palpitations, or orthopnea. Respiratory: Denies cough, wheezing, or shortness of breath GI: Denies nausea, vomiting, abdominal pain, diarrhea, or constipation : Denies pain with urination or frequency Musculoskeletal: Denies joint pain or swelling Neuro/psych: Denies muscle weakness or sensory loss Skin: Denies skin rashes HOME MEDICATIONS: Please see below. PHYSICAL EXAMINATION: VITAL SIGNS: See below GENERAL APPEARANCE: Well-appearing female sitting comfortably in bed in no acute distress HEENT: NC, AT, EOMI, no scleral icterus, moist mucous membranes, no pharyngeal erythema. CARDIOVASCULAR: RRR, normal S1-S2. No murmurs, gallops, rubs. LUNGS: CTAB with full breath sounds, no wheezes, crackles, or rhonchi. ABDOMEN: Soft, nontender, nondistended, bowel sounds present. No hepatosplenomegaly. No masses or ecchymosis. No CVA tenderness. EXTREMITIES: No swelling or edema, tenderness to palpation in hip of RLE. NEUROLOGICAL: No focal or sensory deficits. CN II-XII grossly intact. PSYCHIATRIC: Normal mood and affect LABORATORY DATA: See below. IMAGIN05/04/[address]: IMPRESSION: 1. No acute intracranial hemorrhage or acute intracranial abnormality. 2. Moderate cerebral volume loss and chronic microangiopathic changes. 05/04/2021 chest x-ray: IMPRESSION: No acute findings. 05/04/[address] C[address]: "IMPRESSION: 1. No fracture or subluxation in the cervical spine. 2. C4-C5: Mild spinal canal stenosis and moderate left neural foraminal stenosis. 3. C5-C6: Mild spinal canal stenosis, moderate left neural foraminal stenosis, and minimal right neural foraminal stenosis" MICROBIOLOGY: Please see below. Assessment/Plan: #. Syncope Lab work unremarkable, CT head normal, EKG unremarkable We will place patient on telemetry, echo, EEG, and obtain orthostatic vital signs. May consider backing off on her blood pressure, as per note from her PCP she apparently often will have soft or low blood pressures that of been asymptomatic in the past. #. Rhabdomyolysis (mild) Patient received IV fluid bolus in the ED, will repeat in the morning #. Leukocytosis Looking for source of the leukocytosis outside of the rhabdo or fall itself, ED provider ordered a urinalysis that was positive and gave patient single dose of Rocephin. Patient denies any fevers, suprapubic abdominal pain, burning on urination. We will hold off with further antibiotic therapy for now #. Weakness On conversation with the patient when asked why she could not get up she felt that she did not have enough strength to get up and her legs On neuro testing she had difficulty holding up her right leg due to tenderness in her hip, ordering hip x-ray, day team to follow-up #. Hypertension Continue home chlorthalidone, losartan, metoprolol #. Nicotine use disorder We will start patient on nicotine patch for nicotine replacement #. Hyperlipidemia Continue home pravastatin DVT prophylaxis: Heparin Disposition: DNR/DNI Vital Signs Vital Signs Date Time Temp Pulse Resp B/P (MAP) Pulse Ox O2 Delivery O2 Flow Rate FiO2 05/04/21 04:41 92 98 05/04/21 04:12 133/58 (83) 05/04/21 00:39 97.0 16 Room Air Laboratory Data Labs 24H Laboratory Tests 2 05/04/21 01:17: Urine Color SEA, Urine Appearance CLOUDYH, Urine pH 5.0, Urine Specific Jackson 1.020, Urine Protein 1+H, Urine Glucose (Auto)(UA) NEGATIVE, Urine Ketones (Auto) 1+H, Urine Blood 2+H, Urine Nitrite NEGATIVE, Urine Bilirubin NEGATIVE, Urine Urobilinogen 2.0H, Urine Leukocyte Esterase (Auto) 2+H, Urine WBC (Auto) 25H, Urine RBC (Auto) 7H, Urine Hyaline Casts (Auto) 8, Urine Bacteria (Auto) 2+H, Urine Squamous Epithelial Cells 4, Urine Mucus (Auto) SMALL, Urine Sperm (Auto) 05/04/21 01:18: Immature Granulocyte % (Auto) 0.4, Neutrophils (%) (Auto) 86.0H, Lymphocytes (%) (Auto) 6.5L, Monocytes (%) (Auto) 6.4, Eosinophils (%) (Auto) 0.3, Basophils (%) (Auto) 0.4, Neutrophils # (Auto) 12.1H, Lymphocytes # (Auto) 0.9L, Monocytes # (Auto) 0.9H, Eosinophils # (Auto) 0.0, Basophils # (Auto) 0.1, Nucleated Red Blood Cells % (auto) 0.0, Lactic Acid Level 1.1, Coronavirus (COVID-19)(PCR) NEGATIVE, Influenza Type A (RT-PCR) NEGATIVE, Influenza Type B (RT-PCR) NEGATIVE, Respiratory Syncytial Virus (PCR) NEGATIVE 05/04/21 01:33: Magnesium Level 2.0, Total Creatine Kinase 1197H, Thyroid Stimulating Hormone (TSH) 1.410 05/04/21 01:53: POC Glucose (Misc Panel) 84, POC Sodium (Misc Panel) 138, POC Potassium (Misc Panel) 3.3L, POC Chloride (Misc Panel) 102, POC Total CO2 (Misc Panel) 22.0L, POC Blood Urea Nitrogen (Misc Panel 34H, POC Ionized Calcium (Misc Panel) 4.4L, POC Creatinine (Misc Panel) 1.0, POC Hematocrit (Misc Panel) 44.0 05/04/21 01:56: POC Troponin I (Misc) 0.08 CBC/BMP Laboratory Tests 05/04/21 01:18 Home Medications Scheduled Aspirin (Aspirin EC) 81 Mg Tablet.dr, 81 MG PO DAILY Chlorthalidone (Chlorthalidone) 25 Mg Tablet, 25 MG PO DAILY Losartan Potassium (Losartan Potassium) 50 Mg Tablet, 50 MG PO DAILY Metoprolol Tartrate (Metoprolol Tartrate) 25 Mg Tablet, 25 MG PO BID Pravastatin Sodium (Pravastatin Sodium) 40 Mg Tablet, 40 MG PO QPM Allergies Coded Allergies: Penicillins (Verified Allergy, Intermediate, HIVES, 11/23/18) GME ATTESTATION GME ATTESTATION My faculty preceptor for this patient encounter was physically present during the encounter and was fully available. All aspects of the patient interview, examination, medical decision making process, and medical care plan development were reviewed and approved by the faculty preceptor. The faculty preceptor is aware and concurs with the plan as stated in the body of this note and will attest to such by his/her cosignature. ATTENDING NOTE IKwabena, have independently examined this patient and performed my own physical exam, as well as reviewed the documentation and addend when necessary. I have discussed in detail with the resident / student the findings and plan of treatment as documented by the resident / student. I agree with their findings and treatment plan except for any changes as outlined below. RYAN DAVEY DO May 04, 2021 05:09 CONRAD DE LEON MD May 05, 2021 04:58
[2021-05-04] MEDS ORDERED: MOM 30ML SUSPENSION UDC PO PRN (05:15)
[2021-05-04] MEDS ORDERED: ACETAMINOPHEN TAB 650MG DOSE (2X325MG) PO PRN (05:15)
--- NOTE | 2021-05-04 07:35 | ECGEPIP ---
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
[2021-05-04 08:27] LABS: HEMATOCRIT 37.2 % (36.0-47.0); HEMOGLOBIN 12.3 g/dl (12.0-15.5); MEAN CORPUSCULAR HEMOGLOBIN 27.6 pg (27.0-33.0); MEAN CORPUSCULAR HGB CONC 33.1 g/dl (32.0-36.5); MEAN CORPUSCULAR VOLUME 83.4 fl (80.0-96.0); PLATELET COUNT, AUTOMATED 236 10^3/uL (150-450); RED BLOOD COUNT 4.46 10^6/uL (4.00-5.40); WHITE BLOOD COUNT 12.2 10^3/uL (4.0-10.0)
[2021-05-04] MEDS: ASPIRIN 81MG ENTERIC TABLET PO SCH (08:33)
[2021-05-04] MEDS: NICOTINE 14 MG/24 HR TRANSDERMAL TD SCH (08:33)
[2021-05-04] MEDS: METOPROLOL TART 25 MG TABLET PO SCH ×2 (08:36→20:20)
[2021-05-04 08:52] LABS: ALBUMIN 2.4 GM/DL (3.2-5.2); BILIRUBIN,TOTAL 0.6 MG/DL (0.2-1.0); CALCIUM LEVEL 8.3 MG/DL (8.8-10.2); CREATININE FOR GFR 0.96 MG/DL (0.55-1.30); GLOMERULAR FILTRATION RATE 59.2 (>32); POTASSIUM SERUM 3.6 MEQ/L (3.5-5.1)
[2021-05-04] MEDS ORDERED: CHLORTHALIDONE 25 MG TAB PO SCH (09:00)
[2021-05-04] MEDS ORDERED: LOSARTAN 50MG TABLET PO SCH (09:00)
--- NOTE | 2021-05-04 09:21 | REP ---
INDICATION: R-hip pain. COMPARISON: None. TECHNIQUE: AP view of the pelvis with AP and frogleg views of both hips. Five views. FINDINGS: Bony pelvic ring appears intact. There is diffuse osteopenia. Femoral heads are smooth and rounded hip joint spaces are preserved. There is minimal inferior acetabular spurring bilaterally. Periarticular soft tissues are unremarkable. No fracture or bony destructive lesion is seen. No sacral lesion is seen. IMPRESSION: Diffuse osteopenia. Minimal degenerative changes. No acute bony abnormality seen. <Electronically signed by Jeremiah Bal > 05/04/21 0931
[2021-05-04 15:05] VITALS: BP 93/65
[2021-05-04] MEDS: HEPARIN SOD (PORCINE) 5000UNITS/ML 1ML VIAL/SYRINGE SC SCH ×2 (15:21→20:25)
[2021-05-04 17:00] VITALS: BP_SYST 106; BP_SYST 108; BP_SYST 117; BP_DIAS 54; BP_DIAS 56; BP_DIAS 58
[2021-05-04 20:15] VITALS: BP 102/65
[2021-05-04] MEDS: NYSTATIN 100,000 UNITS/GM TOPICAL PWD 15 GM TOP SCH (20:25)
[2021-05-04] MEDS: PRAVASTATIN 20 MG TAB PO SCH (20:25)
[2021-05-05] MEDS: HEPARIN SOD (PORCINE) 5000UNITS/ML 1ML VIAL/SYRINGE SC SCH ×3 (05:18→21:11)
[2021-05-05] MEDS: IPRATROPIUM 0.5MG/ALBUTEROL 2.5MG INH SOL UD 3ML (DUONEB) NEB PRN ×2 (05:43→21:32)
[2021-05-05 06:00] VITALS: BP 104/64
[2021-05-05 06:50] LABS: HEMATOCRIT 38.7 % (36.0-47.0); HEMOGLOBIN 12.6 g/dl (12.0-15.5); MEAN CORPUSCULAR HEMOGLOBIN 27.3 pg (27.0-33.0); MEAN CORPUSCULAR HGB CONC 32.6 g/dl (32.0-36.5); MEAN CORPUSCULAR VOLUME 83.8 fl (80.0-96.0); PLATELET COUNT, AUTOMATED 225 10^3/uL (150-450); RED BLOOD COUNT 4.62 10^6/uL (4.00-5.40); WHITE BLOOD COUNT 8.6 10^3/uL (4.0-10.0)
[2021-05-05 07:02] LABS: ALBUMIN 2.6 GM/DL (3.2-5.2); BILIRUBIN,TOTAL 0.5 MG/DL (0.2-1.0); CREATININE FOR GFR 1.03 MG/DL (0.55-1.30); GLOMERULAR FILTRATION RATE 54.6 (>32); POTASSIUM SERUM 3.3 MEQ/L (3.5-5.1); TOTAL PROTEIN 5.3 GM/DL (6.4-8.2)
[2021-05-05] MEDS: METOPROLOL TART 12.5 MG PER 1/2 TAB PO SCH ×2 (09:00→21:00)
[2021-05-05] MEDS: NYSTATIN 100,000 UNITS/GM TOPICAL PWD 15 GM TOP SCH ×2 (09:24→21:10)
[2021-05-05] MEDS: NICOTINE 14 MG/24 HR TRANSDERMAL TD SCH (09:25)
[2021-05-05] MEDS: ASPIRIN 81MG ENTERIC TABLET PO SCH (09:26)
[2021-05-05] MEDS ORDERED: cefTRIAXone SOD 1 GM in D5W MINI-BAG PLUS 50 ML IV SCH (10:00)
--- NOTE | 2021-05-05 11:31 | IPNPDOC ---
Date Seen The patient was seen on 05/05/21. Progress Note SUBJECTIVE: UA positive; however, urine culture was not reflexed from specimen. Called microbiology and they may be able to use the sample from 05/04/2021. The patient is currently asymptomatic and feels overall improved. Per physical therapy, would benefit from continued rehabilitation. Echocardiogram scheduled for 05/06/2021. She denies chest pain, nausea, vomiting, lightheadedness or di zziness currently. Orthostatics negative. OBJECTIVE: PHYSICAL EXAMINATION: VITAL SIGNS: See below GENERAL APPEARANCE: Laying in bed, no acute distress, awake alert oriented x3 HEENT: NC, AT, EOMI, no scleral icterus, moist mucous membranes, no pharyngeal erythema, corrective lenses in place CARDIOVASCULAR: RRR, normal S1-S2. No murmurs, gallops, rubs. LUNGS: CTAB with full breath sounds, no wheezes, crackles, or rhonchi. ABDOMEN: Soft, nontender, nondistended, bowel sounds present. No hepato splenomegaly. No masses or ecchymosis. No CVA tenderness. EXTREMITIES: No swelling or edema, tenderness to palpation in hip of RLE. NEUROLOGICAL: No focal or sensory deficits. CN II-XII grossly intact. PSYCHIATRIC: Normal mood and affect LABORATORY DATA: See below. IMAGIN05/04/[address]: IMPRESSION: 1. No acute intracranial hemorrhage or acute intracranial abnormality. 2. Moderate cerebral volume loss and chronic microangiopathic changes. 05/04/2021 chest x-ray: IMPRESSION: No acute findings. 05/04/[address] C-[address]: "IMPRESSION: 1. No fracture or subluxation in the cervical spine. 2. C4-C5: Mild spinal canal stenosis and moderate left neural foraminal stenosis. 3. C5-C6: Mild spinal canal stenosis, moderate left neural foraminal stenosis, and minimal right neural foraminal stenosis" MICROBIOLOGY: UA positive, urine culture pending Assessment/Plan: #Syncope rule out vasovagal episode vs secondary to infection (see below) vs hypotension (see below) Lab work unremarkable, CT head normal, EKG unremarkable -Orthostatics negative here but BP has been soft overall -Telemetry unremarkable -No prior echo on file, ordered for 05/06/2021 -Neurological checks negative, EEG likely not indicated. Continue with telemetry, close monitoring, nutritional assessment, tx below of individual issues Hypotension likely multifactorial to dehydration ,home medications -hx of HTN -Neg orthotstatics -Holding most home meds incl diuretic, BB with holding parameters -Encouraging PO intake of fluids #Hypokalemia, acute -Replace PRN, 40 mEq today -Daily labs #Rhabdomyolysis (mild), improving -CPK decreased, creatinine within normal limits Patient received IV fluid bolus in the ED, will repeat in the morning #UTI -UA + in ER, Cx not sent initially -Sending Cx from initial UA today -Ceftriaxone started #Physical deconditioning, acute on chronic, s/p falls, generally weak -Likely chronic and also acute 2/2 to infection, dehydration -PT: 3-5 more sessions suggested -C/w PT, nutritional optimization #Nicotine use disorder Nicotine patch #Hyperlipidemia Continue home pravastatin DVT prophylaxis: Heparin Disposition: Inpatient status. PT to continue while here, plan is likely home at discharge. DNR/DNI VS, I&O, 24H, Fishbone Vital Signs/I&O Vital Signs Date Time Temp Pulse Resp B/P (MAP) Pulse Ox O2 Delivery O2 Flow Rate FiO2 05/05/21 09:00 57 100/65 05/05/21 06:00 98.1 17 96 Room Air I&O- Last 24 Hours up to 6 AM 05/05/21 06:00 Intake Total 300 ml Balance 300 ml Laboratory Data 24H LABS Laboratory Tests 2 05/05/21 06:28: Nucleated Red Blood Cells % (auto) 0.0, Anion Gap 9, Glomerular Filtration Rate 54.6, Calcium Level 8.0L, Total Bilirubin 0.5, Aspartate Amino Transf (AST/SGOT) 42H, Alanine Aminotransferase (ALT/SGPT) 29, Alkaline Phosphatase 112, Total Creatine Kinase 464H, Total Protein 5.3L, Albumin 2.6L, Albumin/Globulin Ratio 1.0L CBC/BMP Laboratory Tests 05/05/21 06:28 Silvina Payan MD May 05, 2021 11:31
[2021-05-05 12:00] VITALS: BP 105/57
--- NOTE | 2021-05-05 13:31 | ECHO ---
ECHOCARDIOGRAM DATE OF PROCEDURE: 05/04/2021 Age: 80 Gender: Female. Height: 63 inches Weight: 173 pounds REFERRING PROVIDER: Kiel Weldon D.O. REASON FOR THE ECHOCARDIOGRAM: Syncope. MEASUREMENTS: 2D Measurements: IVS 1.0 cm LV 4.0 cm LVPW 1.1 cm LA 2.9 cm Aorta 3.1 cm IVC 1.7 cm Doppler Measurements: Peak velocity across the aortic valve 2.6 m/sec Peak velocity across the LVOT 1.0 m/sec Peak gradient across the aortic valve 28 mmHg Mean gradient across the aortic valve 15 mmHg Mitral E 0.50 Mitral A 0.8 with a ratio of 0.8 2D COMMENTS: 1. Normal left ventricular size, wall thickness and normal global left ventricular systolic function. The estimated left ventricular systolic ejection fraction is 60-65%. 2. Normal left atrium. Normal right atrium and right ventricle. 3. The atrial septum appeared to be normal without evidence of defect or shunt. 4. Normal aortic root. 5. A trace pericardial effusion was noted in limited views. No evidence of cardiac tamponade. 6. Mildly calcified aortic valve with decreased leaflet excursion. Normal mitral valve and tricuspid valve. The pulmonic valve and proximal pulmonary artery branches were not well visualized. 7. The inferior vena cava was normal in size. Central venous pressure was most likely normal. DOPPLER: No significant valvular regurgitation detected. Abnormal relaxation pattern was noted across the mitral valve leaflets as well as the mitral valve annulus consistent with findings of grade 1 left ventricular diastolic function. IMPRESSION: 1. Normal global left ventricular systolic function. There were some findings of grade 1 left ventricular diastolic dysfunction manifested by abnormal relaxation. 2. Aortic valve sclerosis with mild aortic stenosis, but no aortic regurgitation. 3. Trace pericardial effusion noted in limited views.
[2021-05-05 14:00] VITALS: BP 105/57
[2021-05-05 21:03] VITALS: BP 103/54
[2021-05-05] MEDS: PRAVASTATIN 20 MG TAB PO SCH (21:10)
[2021-05-06 05:44] VITALS: BP 100/60
[2021-05-06] MEDS: HEPARIN SOD (PORCINE) 5000UNITS/ML 1ML VIAL/SYRINGE SC SCH ×3 (05:50→20:36)
[2021-05-06 07:31] LABS: HEMATOCRIT 38.1 % (36.0-47.0); HEMOGLOBIN 12.5 g/dl (12.0-15.5); MEAN CORPUSCULAR HEMOGLOBIN 27.5 pg (27.0-33.0); MEAN CORPUSCULAR HGB CONC 32.8 g/dl (32.0-36.5); MEAN CORPUSCULAR VOLUME 83.7 fl (80.0-96.0); PLATELET COUNT, AUTOMATED 239 10^3/uL (150-450); RED BLOOD COUNT 4.55 10^6/uL (4.00-5.40); WHITE BLOOD COUNT 8.2 10^3/uL (4.0-10.0)
[2021-05-06 08:01] LABS: ALBUMIN 2.5 GM/DL (3.2-5.2); ALT/SGPT 30 U/L (12-78); BILIRUBIN,TOTAL 0.4 MG/DL (0.2-1.0); BLOOD UREA NITROGEN 19 MG/DL (7-18); CALCIUM LEVEL 8.5 MG/DL (8.8-10.2); CARBON DIOXIDE LEVEL 29 MEQ/L (21-32); CHLORIDE LEVEL 108 MEQ/L (98-107); CREATININE FOR GFR 0.93 MG/DL (0.55-1.30); GLOMERULAR FILTRATION RATE > 60.0 (>32); GLUCOSE, FASTING 85 MG/DL (70-100); POTASSIUM SERUM 3.8 MEQ/L (3.5-5.1); SODIUM LEVEL 143 MEQ/L (136-145); TOTAL PROTEIN 5.2 GM/DL (6.4-8.2)
[2021-05-06] MEDS: NYSTATIN 100,000 UNITS/GM TOPICAL PWD 15 GM TOP SCH ×2 (08:24→20:35)
[2021-05-06] MEDS: NICOTINE 14 MG/24 HR TRANSDERMAL TD SCH (08:25)
[2021-05-06] MEDS: ASPIRIN 81MG ENTERIC TABLET PO SCH (08:25)
[2021-05-06] MEDS: METOPROLOL TART 12.5 MG PER 1/2 TAB PO SCH ×2 (08:33→20:36)
[2021-05-06 09:00] VITALS: BP 143/75
--- NOTE | 2021-05-06 11:58 | IPNPDOC ---
Date Seen The patient was seen on 05/06/21. Progress Note SUBJECTIVE: Urine culture no growth, stop ceftriaxone and placed on Ceftin p.o. twice daily for 2 additional days. PT to reevaluate today to see if patient would benefit from continued rehab. The patient denies any acute events overnight and denies chest pain, nausea, vomiting, lightheadedness or dizziness currently. OBJECTIVE: PHYSICAL EXAMINATION: VITAL SIGNS: See below GENERAL APPEARANCE: Laying in bed, no acute distress, awake alert oriented x3 HEENT: NC, AT, EOMI, no scleral icterus, moist mucous membranes, no pharyngeal erythema, corrective lenses in place CARDIOVASCULAR: RRR, normal S1-S2. No murmurs, gallops, rubs. LUNGS: CTAB with full breath sounds, no wheezes, crackles, or rhonchi. ABDOMEN: Soft, nontender, nondistended, bowel sounds present. No hepatosplenomegaly. No masses or ecchymosis. No CVA tenderness. EXTREMITIES: No swelling or edema NEUROLOGICAL: No focal or sensory deficits. CN II-XII grossly intact. PSYCHIATRIC: Normal mood and affect LABORATORY DATA: See below. IMAGIN05/04/[address]: IMPRESSION: 1. No acute intracranial hemorrhage or acute intracranial abnormality. 2. Moderate cerebral volume loss and chronic microangiopathic changes. 05/04/2021 chest x-ray: IMPRESSION: No acute findings. 05/04/2021 C-sp[address] CT: "IMPRESSION: 1. No fracture or subluxation in the cervical spine. 2. C4-C5: Mild spinal canal stenosis and moderate left neural foraminal stenosis. 3. C5-C6: Mild spinal canal stenosis, moderate left neural foraminal stenosis, and minimal right neural foraminal stenosis" MICROBIOLOGY: UA positive, urine culture pending Assessment/Plan: #Syncope rule out vasovagal episode vs secondary to infection (see below) vs hypotension (see below) Lab work unremarkable, CT head normal, EKG unremarkable -Orthostatics negative here but BP has been soft overall- slightly improved with removal of home meds -Telemetry unremarkable -No prior echo on file, ordered for 05/06/2021 -Neurological checks negative, EEG likely not indicated. Continue with telemetry, close monitoring, nutritional assessment, tx below of individual issues Hypotension likely multifactorial to dehydration ,home medications -hx of HTN -Neg orthotstatics -Holding most home meds incl diuretic, BB with holding parameters -Encouraging PO intake of fluids #UTI -UA + in ER, UCx NG -Ceftriaxone started but stopped 05/06/21 -Ordered ceftin BID x 2 additional days (complete total of 3) #Physical deconditioning, acute on chronic, s/p falls, generally weak -Likely chronic and also acute 2/2 to infection, dehydration -PT: 3-5 more sessions suggested -C/w PT, nutritional optimization #Nicotine use disorder Nicotine patch #Hyperlipidemia Continue home pravastatin DVT prophylaxis: Heparin Resolved: #Hypokalemia, acute #Rhabdomyolysis (mild) Disposition: Inpatient status. PT to continue while here, plan is likely home at discharge ;however, reassessing today to see what needs are. DNR/DNI VS, I&O, 24H, Fishbone Vital Signs/I&O Vital Signs Date Time Temp Pulse Resp B/P (MAP) Pulse Ox O2 Delivery O2 Flow Rate FiO2 05/06/21 08:33 95 143/75 05/06/21 05:44 98.8 18 96 Room Air I&O- Last 24 Hours up to 6 AM 05/06/21 06:00 Intake Total 580 ml Output Total 75 ml Balance 505 ml Laboratory Data 24H LABS Laboratory Tests 2 05/06/21 07:21: Nucleated Red Blood Cells % (auto) 0.0, Anion Gap 6L, Glomerular Filtration Rate > 60.0, Calcium Level 8.5L, Total Bilirubin 0.4, Aspartate Amino Transf (AST/SGOT) 34, Alanine Aminotransferase (ALT/SGPT) 30, Alkaline Phosphatase 105, Total Creatine Kinase 193H, Total Protein 5.2L, Albumin 2.5L, Albumin/Globulin Ratio 0.9L CBC/BMP Laboratory Tests 05/06/21 07:21 Microbiology Microbiology 05/05/21 Urine Culture - Final, Complete 05/04/21 Urine Culture, Received Pending Silvina Payan MD May 06, 2021 11:58
[2021-05-06 14:00] VITALS: BP 115/65
[2021-05-06] MEDS: CEFUROXIME 500 MG TAB PO SCH ×2 (14:06→20:35)
[2021-05-06] MEDS: PRAVASTATIN 20 MG TAB PO SCH (20:35)
[2021-05-06] MEDS: IPRATROPIUM 0.5MG/ALBUTEROL 2.5MG INH SOL UD 3ML (DUONEB) NEB PRN (20:35)
[2021-05-06 20:36] VITALS: BP 132/72
[2021-05-06 22:00] VITALS: BP 113/65
[2021-05-07 06:00] VITALS: BP 112/55
[2021-05-07 06:11] LABS: HEMATOCRIT 35.7 % (36.0-47.0); HEMOGLOBIN 11.8 g/dl (12.0-15.5); MEAN CORPUSCULAR HEMOGLOBIN 27.3 pg (27.0-33.0); MEAN CORPUSCULAR HGB CONC 33.1 g/dl (32.0-36.5); MEAN CORPUSCULAR VOLUME 82.6 fl (80.0-96.0); PLATELET COUNT, AUTOMATED 229 10^3/uL (150-450); RED BLOOD COUNT 4.32 10^6/uL (4.00-5.40); WHITE BLOOD COUNT 8.2 10^3/uL (4.0-10.0)
[2021-05-07] MEDS: HEPARIN SOD (PORCINE) 5000UNITS/ML 1ML VIAL/SYRINGE SC SCH (06:29)
[2021-05-07 06:42] LABS: ALBUMIN 2.4 GM/DL (3.2-5.2); ALT/SGPT 29 U/L (12-78); BILIRUBIN,TOTAL 0.4 MG/DL (0.2-1.0); BLOOD UREA NITROGEN 16 MG/DL (7-18); CALCIUM LEVEL 8.3 MG/DL (8.8-10.2); CARBON DIOXIDE LEVEL 30 MEQ/L (21-32); CHLORIDE LEVEL 108 MEQ/L (98-107); CREATININE FOR GFR 0.86 MG/DL (0.55-1.30); GLOMERULAR FILTRATION RATE > 60.0 (>32); GLUCOSE, FASTING 82 MG/DL (70-100); POTASSIUM SERUM 3.7 MEQ/L (3.5-5.1); SODIUM LEVEL 143 MEQ/L (136-145)
[2021-05-07] MEDS ORDERED: METO1TAB87 PO (08:54)
[2021-05-07] MEDS ORDERED: CEFU50TA PO ×2 (08:54→09:23)
[2021-05-07] MEDS: NICOTINE 14 MG/24 HR TRANSDERMAL TD SCH (09:32)
[2021-05-07] MEDS: CEFUROXIME 500 MG TAB PO SCH (09:32)
[2021-05-07] MEDS: ASPIRIN 81MG ENTERIC TABLET PO SCH (09:32)
[2021-05-07] MEDS: METOPROLOL TART 12.5 MG PER 1/2 TAB PO SCH (09:32)
[2021-05-07] MEDS: NYSTATIN 100,000 UNITS/GM TOPICAL PWD 15 GM TOP SCH (09:33)
--- NOTE | 2021-05-07 09:46 | EEG ---
ELECTROENCEPHALOGRAM DATE: 05/06/2021 REFERRING PHYSICIAN: CONRAD DE LEON MD DIAGNOSIS: Syncope. EEG#: [id number] HISTORY: The patient is an 80-year-old woman with a history of breast cancer, hypertension, who fell at home and was found the next day by a nephew. The patient stated that she did not lose consciousness or hit her head. The patient stated that she just could not get up. This EEG was done to rule out epileptic potential. She is currently taking aspirin, pravastatin, metoprolol, etc. TECHNICAL DESCRIPTION: This digital electroencephalogram (EEG) was recorded by 21 scalp, ear, and two electrocardiogram (EKG) electrodes and was reviewed in bipolar and referential montages following reformatting in 10-20 international electrode placement system. INTERPRETATION: The patient was noted to be in awake and drowsy states during this EEG. Resting and awake background rhythm consisted of well-formed posterior dominant rhythm with anterior/posterior gradient comprising of 12 Hz alpha activity measuring 15-40 microvolts in amplitude which was symmetric and reactive to eye opening. Attenuation of posterior dominant rhythm was seen during transition to drowsiness. Stage I and II sleep were reviewed and were symmetric bilaterally. Hyperventilation was not performed. Photic stimulation remained unremarkable. EKG revealed normal sinus rhythm. No focal, lateralizing, or epileptiform abnormalities were seen. No relevant clinical activity was noted. CONCLUSION: This EEG in awake, drowsy states, stage I and II sleep is within normal limits.
--- NOTE | 2021-05-07 18:32 | DS.PDOC ---
Discharge Summary General Date of Admission May 04, 2021 at 04:52 Date of Discharge 05/07/2021 Primary Care Physician: Clemente Pleitez DO Attending Physician: WILMA COLLAZO DO Discharge Summary PROCEDURES PERFORMED DURING STAY: None. ADMITTING DIAGNOSES: 1. Syncope. 2. Rhabdomyolysis, mild 3. Leukocytosis 4. Weakness 5. Hypertension 6. Nicotine use disorder 7. Hyperlipidemia DISCHARGE DIAGNOSES: 1. Syncope. 2. Rhabdomyolysis, mild 3. Leukocytosis 4. Weakness 5. Hypertension 6. Nicotine use disorder 7. Hyperlipidemia COMPLICATIONS/CHIEF COMPLAINT: Rhabdomyolysis,Syncope,Uti. HISTORY OF PRESENT ILLNESS: Patient is an 80-year-old female who presented to the hospital with chief complaint of syncope. Patient was brought in by her son and is not a great historian. Per the patient, she woke up this morning on the couch and was in her usual state of health and then does not remember the rest the morning and was found on the floor of her living room by her nephew. She denies any memory of the incident and even denies passing out. Report the admitting provider received in the emergency department provider that the patient was brought in by her son. She does live alone and her kids periodically will call to check on her however she was not picking up the phone. When he came in to check on her, he found her on the ground and was unable to stand up. She denies any headache, dizziness, lightheadedness, vision changes, chest pain, difficulty breathing, nausea, abdominal pain, constipation, diarrhea, weakness in her arms and legs. HOSPITAL COURSE: Patient was admitted for syncope, syncope work-up did not reveal a patient's cause of the syncope however, the patient does apparently have a reported history of low blood pressures that have been asymptomatic. Patient is on multiple blood pressure medications which were stopped at this time. Patient was only sent home on a half dose of metoprolol with instructions to stop taking these medications and follow-up with her primary care provider. Patient was weak throughout the hospitalization however, patient did work physical therapy and physical therapy did state that the patient was ready for discharge. Patient was able to walk around the room without any difficulty. Outpatient PT prescription was given to the patient as patient did not qualify for home health care services as the patient is able to drive herself to her appointments and is not homebound. Patient was feeling well and on 05/07/2021, patient was deemed ready for discharge home. DISCHARGE MEDICATIONS: Please see below. ALLERGIES: Please see below. PHYSICAL EXAMINATION ON DISCHARGE: VITAL SIGNS: Please see below. General: Alert and oriented female patient who was sitting up in bed when I walked in the room. Patient not appear to be in any acute distress. HEENT: Normocephalic, atraumatic, moist mucous membranes. Neck: No lymphadenopathy or thyromegaly Cardiac: Regular rate and rhythm, no murmurs, normal S1, normal S2 Pulm: Clear to auscultation bilaterally. No wheezes, rhonchi, rales Abd: Nondistended, nontender to palpation, normal bowel sounds Ext: No edema bilateral lower extremities LABORATORY DATA: Please see below. IMAGING: CT of the cervical spine performed without contrast on 05/04/2021 was reported to show no fracture subluxation of the cervical spine. C4/C5 mild sp inal canal stenosis moderate left neuroforaminal stenosis. C5/C6: Mild spinal canal stenosis, moderate left neural foraminal stenosis, and minimal right neural foraminal stenosis. Chest x-ray performed on 05/04/2021 is reported to show no acute findings. CT of the head performed without contrast on 05/04/2021 is reported to show no acute intracranial hemorrhage or acute intracranial abnormality. Moderate cerebral volume loss and chronic microangiopathic changes. Bilateral hip with AP pelvis x-ray performed on 05/04/2021 is reported to show diffuse osteopenia. Minimal degenerative changes. No acute bony abnormality seen. Echocardiogram performed on 05/04/2021 is reported to show normal global left ventricular systolic function. There were some findings of grade 1 left ventricular diastolic dysfunction manifested by abnormal relaxation. Aortic valve sclerosis with mild aortic valve stenosis but no aortic regurgitation. Trace pericardial effusion noted in limited views PROGNOSIS: Fair ACTIVITY: As tolerated. DIET: Regular DISCHARGE PLAN: Discharge home DISPOSITION: 01 Home, Self-Care. DISCHARGE INSTRUCTIONS: 1. Follow-up with primary care provider within 5 to 7 days of discharge. 2. Stop all antihypertensive medications with the exception of metoprolol which you should take a half dose of twice a day to follow-up with your primary care provider 3. Return to the emergency department symptoms worsen ITEMS TO FOLLOWUP ON ON OUTPATIENT: 1. Follow-up on blood pressure management as home antihypertensive medication has been stopped due to low blood pressures in the hospital and syncope. DISCHARGE CONDITION: Stable. TIME SPENT ON DISCHARGE: 35 minutes. Vital Signs/I&Os Vital Signs Date Time Temp Pulse Resp B/P (MAP) Pulse Ox O2 Delivery O2 Flow Rate FiO2 05/07/21 06:00 99.0 71 20 112/55 (74) 94 Room Air I&O- Last 24 Hours up to 6 AM 05/07/21 06:00 Intake Total 670 ml Balance 670 ml Laboratory Data Labs 24H Laboratory Tests 2 05/07/21 05:44: Nucleated Red Blood Cells % (auto) 0.0, Anion Gap 5L, Glomerular Filtration Rate > 60.0, Calcium Level 8.3L, Total Bilirubin 0.4, Aspartate Amino Transf (AST/SGOT) 27, Alanine Aminotransferase (ALT/SGPT) 29, Alkaline Phosphatase 97, Total Creatine Kinase 173, Total Protein 5.0L, Albumin 2.4L, Albumin/Globulin Ratio 0.9L CBC/BMP Laboratory Tests 05/07/21 05:44 Microbiology Microbiology 05/05/21 Urine Culture - Final, Complete 05/04/21 Urine Culture - Final, Complete Klebsiella Oxytoca Discharge Medications Scheduled Aspirin (Aspirin EC) 81 Mg Tablet.dr, 81 MG PO DAILY, (Reported) Cefuroxime Axetil (Cefuroxime) 500 Mg Tablet, 500 MG PO BID Metoprolol Tartrate (Metoprolol Tartrate) 25 Mg Tablet, 12.5 MG PO BID Pravastatin Sodium (Pravastatin Sodium) 40 Mg Tablet, 40 MG PO QPM, (Reported) Allergies Coded Allergies: Penicillins (Verified Allergy, Intermediate, HIVES, 11/23/18) WILMA COLLAZO DO May 07, 2021 18:32
== END 2021-05-07 12:20 | disposition home or self-care (01) | DRG 641 ==
LOC: M ED 18:26 → M ED INP 05-04 04:52 → ENRESERV 05-04 12:26 → M MSPAV 05-04 15:05
PROVIDERS: ADMIT Family Medicine; ATTEND Family Medicine
DX: E86.0 Dehydration (principal); N39.0 Urinary tract infection, site not specified; M62.82 Rhabdomyolysis; R55 Syncope and collapse; E87.6 Hypokalemia; E78.5 Hyperlipidemia, unspecified; I10 Essential (primary) hypertension; F17.200 Nicotine dependence, unspecified, uncomplicated; D72.829 Elevated white blood cell count, unspecified; Z88.0 Allergy status to penicillin; Z85.3 Personal history of malignant neoplasm of breast; Z66 Do not resuscitate

== ENCOUNTER → 2021-08-02 | Outpatient (CLI) | payer MEDICARE ==
[~2021-08-02] MED LIST changes: +ASPI81TA26 PO; +CEFU50TA PO; +CHLO125TA PO; +LOSA50TA28 PO; -LOSA50TA88 PO; +METO1TAB87 PO
[2021-08-02 17:35] LABS: CALCIUM LEVEL 9.2 MG/DL (8.8-10.2); CHOLESTEROL RISK RATIO 3.312 (<5); CREATININE FOR GFR 1.23 MG/DL (0.55-1.30); GLOMERULAR FILTRATION RATE 44.5 (>32); POTASSIUM SERUM 4.3 MEQ/L (3.5-5.1)
== END ==
LOC: M PLALAB 15:42
PROVIDERS: ATTEND Student in an Organized Health Care Education/Training Program
DX: E78.5 Hyperlipidemia, unspecified (principal); I10 Essential (primary) hypertension

== ENCOUNTER → 2021-09-09 | Outpatient (CLI) | payer MEDICARE | LOC: M WHC 10:33 | PROVIDERS: ATTEND Student in an Organized Health Care Education/Training Program | DX: M85.88 Other specified disorders of bone density and structure, other site (principal); M85.851 Other specified disorders of bone density and structure, right thigh; M85.852 Other specified disorders of bone density and structure, left thigh ==

== ENCOUNTER 2021-12-13 14:07 | Outpatient (CLI) | payer MEDICARE ==
[~2021-12-13] VITALS: Ht 152.4 cm; Wt 72.6 kg
[2021-12-13 14:23] VITALS: BP 129/62
[2021-12-13 15:05] LABS: CALCIUM LEVEL 9.1 MG/DL (8.8-10.2); CREATININE FOR GFR 1.04 MG/DL (0.55-1.30); GLOMERULAR FILTRATION RATE 53.9 (>32); POTASSIUM SERUM 4.2 MEQ/L (3.5-5.1)
[2021-12-13] MEDS ORDERED: ZOLEDRONIC ACID 5 MG in IV 1 EA IV ONE (15:30)
[2021-12-13 15:45] VITALS: BP 131/67
== END 2021-12-13 15:45 | disposition home or self-care (01) ==
LOC: M INFU 14:07
PROVIDERS: ATTEND Student in an Organized Health Care Education/Training Program
DX: M81.0 Age-related osteoporosis without current pathological fracture (principal); Z88.0 Allergy status to penicillin
CPT/HCPCS: 36592; 80048; 96365; J3489

== ENCOUNTER → 2022-08-11 | Outpatient (REF) | payer MEDICARE | LOC: M SFHCPLAZ 13:37 | PROVIDERS: ATTEND Family Medicine | DX: R53.81 Other malaise (principal); I10 Essential (primary) hypertension; E78.2 Mixed hyperlipidemia ==

== ENCOUNTER → 2022-08-26 | Outpatient (CLI) | payer MEDICARE ==
[2022-08-26 14:10] LABS: ALBUMIN 3.7 G/DL (3.2-5.2); BILIRUBIN,TOTAL 0.7 MG/DL (0.3-1.2); CALCIUM LEVEL 9.8 MG/DL (8.3-10.6); CHOLESTEROL RISK RATIO 2.44 (<5); CREATININE FOR GFR 1.04 MG/DL (0.55-1.30); GLOMERULAR FILTRATION RATE 53.9 (>32); HDL CHOLESTEROL 71.1 MG/DL (>40); LDL CHOLESTEROL 86.7 MG/DL (<100); NON-HDL-C 102.9 MG/DL; POTASSIUM SERUM 4.8 MMOL/L (3.5-5.1); TOTAL PROTEIN 6.3 G/DL (5.7-8.2)
[2022-08-26 14:12] LABS: TOTAL 25(OH) VITAMIN D 43.5 NG/ML (20.0-100.0)
== END ==
LOC: M PLALAB 09:42
PROVIDERS: ATTEND Student in an Organized Health Care Education/Training Program
DX: R53.81 Other malaise (principal); I10 Essential (primary) hypertension; E78.2 Mixed hyperlipidemia; Z79.899 Other long term (current) drug therapy

== ENCOUNTER → 2023-04-29 | Outpatient (CLI) | payer MEDICARE ==
[~2023-04-29] VITALS: Ht 160 cm; Wt 73.5 kg
[~2023-04-29] MED LIST changes: +ZOLEDRONIC ACID 5 MG in IV 1 EA IV ONE
[2023-04-29 16:20] VITALS: BP 128/68; O2SAT 96
[2023-04-29 17:45] VITALS: BP 149/67; O2SAT 97
== END ==
LOC: M INFU 16:11
PROVIDERS: ATTEND Student in an Organized Health Care Education/Training Program
DX: M81.0 Age-related osteoporosis without current pathological fracture (principal); Z88.0 Allergy status to penicillin
CPT/HCPCS: 96365; J3489

== ENCOUNTER → 2023-07-24 | Outpatient (CLI) | payer MEDICARE ==
[~2023-07-24] MED LIST changes: -ZOLEDRONIC ACID 5 MG in IV 1 EA IV ONE
[2023-07-24 15:19] LABS: BASO # 0.1 10^3/uL (0.0-0.2); BASO % 0.4 % (0.0-1.0); EOS # 0.1 10^3/uL (0.0-0.5); EOS % 0.8 % (0.0-3.0); HEMATOCRIT 43.3 % (36.0-47.0); HEMOGLOBIN 14.1 g/dl (12.0-15.5); LYMPH # 1.9 10^3/uL (1.5-5.0); LYMPH % 14.1 % (24.0-44.0); MEAN CORPUSCULAR HEMOGLOBIN 28.1 pg (27.0-33.0); MEAN CORPUSCULAR HGB CONC 32.6 g/dl (32.0-36.5); MEAN CORPUSCULAR VOLUME 86.3 fl (80.0-96.0); MONO # 1.2 10^3/uL (0.0-0.8); MONO % 9.2 % (2.0-8.0); NEUTROPHILS # 10.1 10^3/uL (1.5-8.5); NEUTROPHILS % 75.1 % (36.0-66.0); PLATELET COUNT, AUTOMATED 322 10^3/uL (150-450); RED BLOOD COUNT 5.02 10^6/uL (4.00-5.40); WHITE BLOOD COUNT 13.5 10^3/uL (4.0-10.0)
[2023-07-24 15:43] LABS: ALBUMIN 3.4 G/DL (3.2-5.2); ALKALINE PHOSPHATASE 142 U/L (46-116); ALT/SGPT 18 U/L (7.0-40); AST/SGOT 14 U/L (<34); BILIRUBIN,TOTAL 1.3 MG/DL (0.3-1.2); BLOOD UREA NITROGEN 19 MG/DL (9-23); CALCIUM LEVEL 9.5 MG/DL (8.3-10.6); CARBON DIOXIDE LEVEL 30 MMOL/L (20-31); CHLORIDE LEVEL 103 MMOL/L (98-107); CHOLESTEROL LEVEL 161 MG/DL (<200); CHOLESTEROL RISK RATIO 2.88 (<5); CREATININE FOR GFR 1.24 MG/DL (0.55-1.30); GLOMERULAR FILTRATION RATE 43.9 (>32); GLUCOSE, FASTING 89 MG/DL (74-106); HDL CHOLESTEROL 55.8 MG/DL (>40); LDL CHOLESTEROL 85.8 MG/DL (<100); NON-HDL-C 105.2 MG/DL; POTASSIUM SERUM 4.2 MMOL/L (3.5-5.1); SODIUM LEVEL 140 MMOL/L (136-145); TOTAL PROTEIN 6.6 G/DL (5.7-8.2); TRIGLYCERIDES LEVEL 97 MG/DL (<150)
[2023-07-24 15:46] LABS: THYROID STIMULATING HORMONE 2.257 uIU/ML (0.55-4.78)
[2023-07-24 15:47] LABS: FREE T4 1.08 NG/DL (0.89-1.76)
[2023-07-24 15:57] LABS: HEMOGLOBIN A1c 5.4 % (4.0-6.0)
== END ==
LOC: M RAD 13:47
PROVIDERS: ATTEND Student in an Organized Health Care Education/Training Program
DX: Z00.00 Encounter for general adult medical examination without abnormal findings (principal); M79.89 Other specified soft tissue disorders; Z79.899 Other long term (current) drug therapy; Z11.3 Encounter for screening for infections with a predominantly sexual mode of transmission; Z72.89 Other problems related to lifestyle

== ENCOUNTER → 2023-08-24 | Outpatient (REF) ==
[2023-08-24 10:57] LABS: HEMATOCRIT 28.1 % (36.0-47.0); HEMOGLOBIN 8.8 g/dl (12.0-15.5); MEAN CORPUSCULAR HEMOGLOBIN 28.1 pg (27.0-33.0); MEAN CORPUSCULAR HGB CONC 31.3 g/dl (32.0-36.5); MEAN CORPUSCULAR VOLUME 89.8 fl (80.0-96.0); PLATELET COUNT, AUTOMATED 350 10^3/uL (150-450); RED BLOOD COUNT 3.13 10^6/uL (4.00-5.40); WHITE BLOOD COUNT 9.4 10^3/uL (4.0-10.0)
[2023-08-24 11:27] LABS: TOTAL IRON BINDING CAPACITY 275 UG/DL (250-425)
[2023-08-24 11:44] LABS: BLOOD UREA NITROGEN 19 MG/DL (9-23); CARBON DIOXIDE LEVEL 30 MMOL/L (20-31); CHLORIDE LEVEL 105 MMOL/L (98-107); CREATININE FOR GFR 1.02 MG/DL (0.55-1.30); FOLATE 20.22 NG/ML (>5.4); GLUCOSE, FASTING 106 MG/DL (74-106); IRON (FE) < 5 UG/DL (50-170); PERCENT SATURATION 1.8 % (13.2-45.0); POTASSIUM SERUM 5.3 MMOL/L (3.5-5.1); SODIUM LEVEL 140 MMOL/L (136-145); VITAMIN B12 LEVEL 211 PG/ML (211-911)
== END ==
PROVIDERS: ATTEND Internal Medicine
DX: D64.9 Anemia, unspecified (principal)

== ENCOUNTER → 2023-08-26 | Outpatient (REF) ==
[2023-08-26 11:09] LABS: BASO # 0.1 10^3/uL (0.0-0.2); BASO % 0.8 % (0.0-1.0); EOS # 0.3 10^3/uL (0.0-0.5); EOS % 4.1 % (0.0-3.0); HEMATOCRIT 27.4 % (36.0-47.0); HEMOGLOBIN 8.8 g/dl (12.0-15.5); LYMPH # 1.3 10^3/uL (1.5-5.0); LYMPH % 17.4 % (24.0-44.0); MEAN CORPUSCULAR HEMOGLOBIN 28.6 pg (27.0-33.0); MEAN CORPUSCULAR HGB CONC 32.1 g/dl (32.0-36.5); MONO # 0.9 10^3/uL (0.0-0.8); MONO % 11.3 % (2.0-8.0); NEUTROPHILS # 4.7 10^3/uL (1.5-8.5); NEUTROPHILS % 62.5 % (36.0-66.0); PLATELET COUNT, AUTOMATED 403 10^3/uL (150-450); RED BLOOD COUNT 3.08 10^6/uL (4.00-5.40); WHITE BLOOD COUNT 7.5 10^3/uL (4.0-10.0)
[2023-08-26 11:16] LABS: C REACTIVE PROTEIN QUANTITATIV 0.8 MG/DL (<1.0)
[2023-08-26 11:18] LABS: CALCIUM LEVEL 8.4 MG/DL (8.3-10.6); CREATININE FOR GFR 1.12 MG/DL (0.55-1.30); GLOMERULAR FILTRATION RATE 49.3 (>32); POTASSIUM SERUM 4.3 MMOL/L (3.5-5.1)
[2023-08-26 14:12] LABS: ERYTHROCYTE SEDIMENTATION RATE 29 mm/hr (0-30)
== END ==
PROVIDERS: ATTEND Physician Assistant
DX: L03.116 Cellulitis of left lower limb (principal)

== ENCOUNTER → 2023-08-26 | Outpatient (REF) | PROVIDERS: ATTEND Internal Medicine | DX: L03.90 Cellulitis, unspecified (principal) ==

== ENCOUNTER → 2023-08-31 | Outpatient (REF) | PROVIDERS: ATTEND Physician Assistant | DX: D64.9 Anemia, unspecified (principal); Z53.8 Procedure and treatment not carried out for other reasons ==

== ENCOUNTER → 2023-09-02 | Outpatient (REF) ==
[2023-09-02 14:22] LABS: HEMATOCRIT 31.9 % (36.0-47.0); HEMOGLOBIN 10.1 g/dl (12.0-15.5); MEAN CORPUSCULAR HEMOGLOBIN 28.1 pg (27.0-33.0); MEAN CORPUSCULAR HGB CONC 31.7 g/dl (32.0-36.5); MEAN CORPUSCULAR VOLUME 88.9 fl (80.0-96.0); PLATELET COUNT, AUTOMATED 423 10^3/uL (150-450); RED BLOOD COUNT 3.59 10^6/uL (4.00-5.40)
[2023-09-02 15:00] LABS: CALCIUM LEVEL 8.1 MG/DL (8.3-10.6); GLOMERULAR FILTRATION RATE 56.2 (>32); POTASSIUM SERUM 4.2 MMOL/L (3.5-5.1)
== END ==
PROVIDERS: ATTEND Physician Assistant
DX: D64.9 Anemia, unspecified (principal)

== ENCOUNTER → 2023-10-14 | Outpatient (REF) ==
[~2023-10-14] MED LIST changes: +DOXY-323 PO; -DOXY-443 PO
[2023-10-14 11:24] LABS: HEMATOCRIT 34.5 % (36.0-47.0); HEMOGLOBIN 10.8 g/dl (12.0-15.5); MEAN CORPUSCULAR HEMOGLOBIN 27.2 pg (27.0-33.0); MEAN CORPUSCULAR HGB CONC 31.3 g/dl (32.0-36.5); MEAN CORPUSCULAR VOLUME 86.9 fl (80.0-96.0); PLATELET COUNT, AUTOMATED 250 10^3/uL (150-450); RED BLOOD COUNT 3.97 10^6/uL (4.00-5.40); WHITE BLOOD COUNT 6.7 10^3/uL (4.0-10.0)
[2023-10-14 11:47] LABS: CALCIUM LEVEL 8.6 MG/DL (8.3-10.6); CREATININE FOR GFR 1.1 MG/DL (0.55-1.30); GLOMERULAR FILTRATION RATE 50.3 (>32); POTASSIUM SERUM 4.1 MMOL/L (3.5-5.1)
== END ==
PROVIDERS: ATTEND Physician Assistant
DX: D64.9 Anemia, unspecified (principal)

== ENCOUNTER → 2023-10-28 | Outpatient (REF) | payer MEDICARE ==
[2023-10-28 11:52] LABS: HEMOGLOBIN 11.6 g/dl (12.0-15.5); MEAN CORPUSCULAR HGB CONC 31.4 g/dl (32.0-36.5); MEAN CORPUSCULAR VOLUME 86.2 fl (80.0-96.0); PLATELET COUNT, AUTOMATED 252 10^3/uL (150-450); RED BLOOD COUNT 4.29 10^6/uL (4.00-5.40); WHITE BLOOD COUNT 6.1 10^3/uL (4.0-10.0)
[2023-10-28 12:19] LABS: CALCIUM LEVEL 8.5 MG/DL (8.3-10.6); CREATININE FOR GFR 1.03 MG/DL (0.55-1.30); GLOMERULAR FILTRATION RATE 54.2 (>32); POTASSIUM SERUM 3.9 MMOL/L (3.5-5.1)
== END ==
PROVIDERS: ATTEND Physician Assistant
DX: I50.9 Heart failure, unspecified (principal)

== ENCOUNTER → 2023-11-11 | Outpatient (REF) | payer MEDICARE ==
[2023-11-11 11:06] LABS: HEMATOCRIT 38.2 % (36.0-47.0); MEAN CORPUSCULAR HEMOGLOBIN 26.7 pg (27.0-33.0); MEAN CORPUSCULAR HGB CONC 31.4 g/dl (32.0-36.5); MEAN CORPUSCULAR VOLUME 84.9 fl (80.0-96.0); PLATELET COUNT, AUTOMATED 246 10^3/uL (150-450); WHITE BLOOD COUNT 6.6 10^3/uL (4.0-10.0)
[2023-11-11 11:47] LABS: CALCIUM LEVEL 8.5 MG/DL (8.3-10.6); CREATININE FOR GFR 1.15 MG/DL (0.55-1.30); GLOMERULAR FILTRATION RATE 47.7 (>32); POTASSIUM SERUM 4.3 MMOL/L (3.5-5.1)
== END ==
PROVIDERS: ATTEND Physician Assistant
DX: D64.9 Anemia, unspecified (principal)

== ENCOUNTER → 2023-12-07 | Outpatient (REF) | payer MEDICARE ==
[2023-12-07 11:20] LABS: BASO # 0.1 10^3/uL (0.0-0.2); BASO % 1.3 % (0.0-1.0); EOS # 0.3 10^3/uL (0.0-0.5); EOS % 4.2 % (0.0-3.0); HEMATOCRIT 39.2 % (36.0-47.0); HEMOGLOBIN 12.4 g/dl (12.0-15.5); LYMPH # 1.1 10^3/uL (1.5-5.0); LYMPH % 16.9 % (24.0-44.0); MEAN CORPUSCULAR HEMOGLOBIN 26.3 pg (27.0-33.0); MEAN CORPUSCULAR HGB CONC 31.6 g/dl (32.0-36.5); MEAN CORPUSCULAR VOLUME 83.2 fl (80.0-96.0); MONO # 0.6 10^3/uL (0.0-0.8); MONO % 9.1 % (2.0-8.0); NEUTROPHILS # 4.6 10^3/uL (1.5-8.5); NEUTROPHILS % 68.2 % (36.0-66.0); PLATELET COUNT, AUTOMATED 243 10^3/uL (150-450); RED BLOOD COUNT 4.71 10^6/uL (4.00-5.40); WHITE BLOOD COUNT 6.7 10^3/uL (4.0-10.0)
[2023-12-07 11:52] LABS: CALCIUM LEVEL 8.5 MG/DL (8.3-10.6); CREATININE FOR GFR 1.11 MG/DL (0.55-1.30); GLOMERULAR FILTRATION RATE 49.7 (>32); POTASSIUM SERUM 3.8 MMOL/L (3.5-5.1)
== END ==
PROVIDERS: ATTEND Physician Assistant
DX: R60.9 Edema, unspecified (principal); I50.9 Heart failure, unspecified

== ENCOUNTER → 2023-12-07 | Outpatient (REF) | payer MEDICARE | PROVIDERS: ATTEND Internal Medicine | DX: I50.9 Heart failure, unspecified (principal) ==

== ENCOUNTER → 2023-12-10 | Outpatient (REF) | payer MEDICARE ==
[2023-12-10 14:18] LABS: BASO # 0.1 10^3/uL (0.0-0.2); EOS # 0.3 10^3/uL (0.0-0.5); EOS % 3.7 % (0.0-3.0); HEMATOCRIT 43.3 % (36.0-47.0); HEMOGLOBIN 13.7 g/dl (12.0-15.5); LYMPH # 1.2 10^3/uL (1.5-5.0); MEAN CORPUSCULAR HEMOGLOBIN 26.1 pg (27.0-33.0); MEAN CORPUSCULAR HGB CONC 31.6 g/dl (32.0-36.5); MEAN CORPUSCULAR VOLUME 82.6 fl (80.0-96.0); MONO # 0.6 10^3/uL (0.0-0.8); MONO % 8.4 % (2.0-8.0); NEUTROPHILS # 4.7 10^3/uL (1.5-8.5); NEUTROPHILS % 69.6 % (36.0-66.0); PLATELET COUNT, AUTOMATED 254 10^3/uL (150-450); RED BLOOD COUNT 5.24 10^6/uL (4.00-5.40); WHITE BLOOD COUNT 6.8 10^3/uL (4.0-10.0)
[2023-12-10 14:49] LABS: CALCIUM LEVEL 8.7 MG/DL (8.3-10.6); CREATININE FOR GFR 1.09 MG/DL (0.55-1.30); GLOMERULAR FILTRATION RATE 50.8 (>32); POTASSIUM SERUM 3.8 MMOL/L (3.5-5.1)
== END ==
PROVIDERS: ATTEND Physician Assistant
DX: R60.9 Edema, unspecified (principal)

== ENCOUNTER → 2024-01-11 | Outpatient (REF) | payer MEDICARE ==
[2024-01-11 11:35] LABS: HEMATOCRIT 40.6 % (36.0-47.0); HEMOGLOBIN 13.2 g/dl (12.0-15.5); MEAN CORPUSCULAR HEMOGLOBIN 26.5 pg (27.0-33.0); MEAN CORPUSCULAR HGB CONC 32.5 g/dl (32.0-36.5); MEAN CORPUSCULAR VOLUME 81.4 fl (80.0-96.0); PLATELET COUNT, AUTOMATED 256 10^3/uL (150-450); RED BLOOD COUNT 4.99 10^6/uL (4.00-5.40); WHITE BLOOD COUNT 8.2 10^3/uL (4.0-10.0)
[2024-01-11 12:03] LABS: ALBUMIN 3.2 G/DL (3.2-5.2); ALKALINE PHOSPHATASE 83 U/L (46-116); ALT/SGPT < 9 U/L (7.0-40); AST/SGOT 10 U/L (<34); BILIRUBIN,DIRECT 0.2 MG/DL (<0.4); BILIRUBIN,TOTAL 0.7 MG/DL (0.3-1.2); BLOOD UREA NITROGEN 29 MG/DL (9-23); CALCIUM LEVEL 9.2 MG/DL (8.3-10.6); CARBON DIOXIDE LEVEL 31 MMOL/L (20-31); CHLORIDE LEVEL 102 MMOL/L (98-107); CHOLESTEROL LEVEL 170 MG/DL (<200); CHOLESTEROL RISK RATIO 2.89 (<5); CREATININE FOR GFR 1.19 MG/DL (0.55-1.30); GLOMERULAR FILTRATION RATE 45.9 (>32); GLUCOSE, FASTING 98 MG/DL (74-106); HDL CHOLESTEROL 58.7 MG/DL (>40); LDL CHOLESTEROL 95.3 MG/DL (<100); NON-HDL-C 111.3 MG/DL; POTASSIUM SERUM 3.8 MMOL/L (3.5-5.1); SODIUM LEVEL 140 MMOL/L (136-145); THYROID STIMULATING HORMONE 3.745 uIU/ML (0.55-4.78); TOTAL PROTEIN 6.1 G/DL (5.7-8.2); TRIGLYCERIDES LEVEL 80 MG/DL (<150)
== END ==
PROVIDERS: ATTEND Physician Assistant
DX: R63.8 Other symptoms and signs concerning food and fluid intake (principal); Z79.899 Other long term (current) drug therapy

== ENCOUNTER → 2024-03-21 | Outpatient (CLI) | payer MEDICARE ==
[~2024-03-21] MED LIST changes: -DOXY-323 PO; +DOXY-441 PO
== END ==
LOC: M RAD 12:36
PROVIDERS: ATTEND Physician Assistant
DX: L03.116 Cellulitis of left lower limb (principal); M79.89 Other specified soft tissue disorders

== ENCOUNTER → 2024-04-13 | Outpatient (REF) | payer MEDICARE ==
[2024-04-13 09:01] LABS: HEMATOCRIT 41.6 % (36.0-47.0); HEMOGLOBIN 13.4 g/dl (12.0-15.5); MEAN CORPUSCULAR HEMOGLOBIN 27.8 pg (27.0-33.0); MEAN CORPUSCULAR HGB CONC 32.2 g/dl (32.0-36.5); MEAN CORPUSCULAR VOLUME 86.3 fl (80.0-96.0); PLATELET COUNT, AUTOMATED 308 10^3/uL (150-450); RED BLOOD COUNT 4.82 10^6/uL (4.00-5.40); WHITE BLOOD COUNT 7.5 10^3/uL (4.0-10.0)
[2024-04-13 09:25] LABS: CALCIUM LEVEL 9.4 MG/DL (8.3-10.6); CREATININE FOR GFR 1.15 MG/DL (0.55-1.30); GLOMERULAR FILTRATION RATE 47.7 (>32); POTASSIUM SERUM 3.5 MMOL/L (3.5-5.1)
== END ==
PROVIDERS: ATTEND Physician Assistant
DX: D64.9 Anemia, unspecified (principal)

== ENCOUNTER → 2024-05-18 | Outpatient (REF) | payer MEDICARE ==
[2024-05-18 17:30] LABS: HEMATOCRIT 38.2 % (36.0-47.0); HEMOGLOBIN 12.2 g/dl (12.0-15.5); MEAN CORPUSCULAR HGB CONC 31.9 g/dl (32.0-36.5); MEAN CORPUSCULAR VOLUME 87.6 fl (80.0-96.0); PLATELET COUNT, AUTOMATED 272 10^3/uL (150-450); RED BLOOD COUNT 4.36 10^6/uL (4.00-5.40); WHITE BLOOD COUNT 9.4 10^3/uL (4.0-10.0)
[2024-05-18 17:45] LABS: HEMOGLOBIN A1c 5.3 % (4.0-6.0)
[2024-05-18 19:00] LABS: CALCIUM LEVEL 8.5 MG/DL (8.3-10.6); GLOMERULAR FILTRATION RATE 56.1 (>32); POTASSIUM SERUM 3.9 MMOL/L (3.5-5.1); THYROID STIMULATING HORMONE 3.147 uIU/ML (0.55-4.78); THYROXINE (T4) 9.3 UG/DL (4.5-10.9)
== END ==
PROVIDERS: ATTEND Physician Assistant
DX: R63.5 Abnormal weight gain (principal); I73.9 Peripheral vascular disease, unspecified; R06.2 Wheezing; Z79.899 Other long term (current) drug therapy

== ENCOUNTER → 2024-05-18 | Outpatient (REF) | payer MEDICARE | LOC: M PLAIMG 11:02 | PROVIDERS: ATTEND Physician Assistant | DX: R06.02 Shortness of breath (principal) ==

== ENCOUNTER → 2024-05-23 | Outpatient (REF) | payer MEDICARE ==
[2024-05-23 09:37] LABS: HEMATOCRIT 40.2 % (36.0-47.0); MEAN CORPUSCULAR HEMOGLOBIN 27.5 pg (27.0-33.0); MEAN CORPUSCULAR HGB CONC 32.3 g/dl (32.0-36.5); MEAN CORPUSCULAR VOLUME 85.2 fl (80.0-96.0); PLATELET COUNT, AUTOMATED 260 10^3/uL (150-450); RED BLOOD COUNT 4.72 10^6/uL (4.00-5.40); WHITE BLOOD COUNT 8.4 10^3/uL (4.0-10.0)
[2024-05-23 10:08] LABS: CREATININE FOR GFR 1.07 MG/DL (0.55-1.30); GLOMERULAR FILTRATION RATE 51.9 (>32); POTASSIUM SERUM 3.8 MMOL/L (3.5-5.1)
== END ==
PROVIDERS: ATTEND Physician Assistant
DX: R60.9 Edema, unspecified (principal)

== ENCOUNTER → 2024-05-30 | Outpatient (REF) | payer MEDICARE ==
[2024-05-30 10:25] LABS: HEMATOCRIT 40.7 % (36.0-47.0); HEMOGLOBIN 13.4 g/dl (12.0-15.5); MEAN CORPUSCULAR HEMOGLOBIN 28.1 pg (27.0-33.0); MEAN CORPUSCULAR HGB CONC 32.9 g/dl (32.0-36.5); MEAN CORPUSCULAR VOLUME 85.3 fl (80.0-96.0); PLATELET COUNT, AUTOMATED 271 10^3/uL (150-450); RED BLOOD COUNT 4.77 10^6/uL (4.00-5.40); WHITE BLOOD COUNT 8.4 10^3/uL (4.0-10.0)
[2024-05-30 11:10] LABS: CALCIUM LEVEL 9.5 MG/DL (8.3-10.6); CREATININE FOR GFR 1.42 MG/DL (0.55-1.30); GLOMERULAR FILTRATION RATE 37.4 (>32)
== END ==
PROVIDERS: ATTEND Physician Assistant
DX: R60.9 Edema, unspecified (principal)

== ENCOUNTER → 2024-06-08 | Outpatient (REF) | payer MEDICARE ==
[2024-06-08 11:02] LABS: CALCIUM LEVEL 9.4 MG/DL (8.3-10.6); CREATININE FOR GFR 1.2 MG/DL (0.55-1.30); GLOMERULAR FILTRATION RATE 45.5 (>32)
== END ==
PROVIDERS: ATTEND Physician Assistant
DX: E87.6 Hypokalemia (principal)

== ENCOUNTER → 2024-06-10 | Outpatient (REF) | payer MEDICARE ==
[2024-06-10 08:57] LABS: MAGNESIUM LEVEL 1.7 MG/DL (1.8-2.4); POTASSIUM SERUM 3.4 MMOL/L (3.5-5.1)
== END ==
PROVIDERS: ATTEND Internal Medicine
DX: E87.6 Hypokalemia (principal)

== ENCOUNTER → 2024-06-15 | Outpatient (REF) | payer MEDICARE | PROVIDERS: ATTEND Physician Assistant | DX: R06.2 Wheezing (principal) ==

== ENCOUNTER → 2024-06-15 | Outpatient (REF) | payer MEDICARE ==
[2024-06-15 13:58] LABS: CALCIUM LEVEL 8.4 MG/DL (8.3-10.6); CREATININE FOR GFR 1.23 MG/DL (0.55-1.30); GLOMERULAR FILTRATION RATE 44.2 (>32); MAGNESIUM LEVEL 1.7 MG/DL (1.8-2.4); POTASSIUM SERUM 4.4 MMOL/L (3.5-5.1)
== END ==
PROVIDERS: ATTEND Physician Assistant
DX: E87.6 Hypokalemia (principal); R63.5 Abnormal weight gain; R06.2 Wheezing

== ENCOUNTER → 2024-07-26 | Outpatient (CLI) | payer MEDICARE | LOC: M RAD 09:57 | PROVIDERS: ATTEND Physician Assistant | DX: R63.5 Abnormal weight gain (principal) ==

== ENCOUNTER → 2024-08-10 | Outpatient (REF) | payer MEDICARE ==
[2024-08-10 09:37] LABS: HEMATOCRIT 41.9 % (36.0-47.0); HEMOGLOBIN 13.3 g/dl (12.0-15.5); MEAN CORPUSCULAR HEMOGLOBIN 27.2 pg (27.0-33.0); MEAN CORPUSCULAR HGB CONC 31.7 g/dl (32.0-36.5); MEAN CORPUSCULAR VOLUME 85.7 fl (80.0-96.0); PLATELET COUNT, AUTOMATED 273 10^3/uL (150-450); RED BLOOD COUNT 4.89 10^6/uL (4.00-5.40); WHITE BLOOD COUNT 7.4 10^3/uL (4.0-10.0)
[2024-08-10 10:04] LABS: CALCIUM LEVEL 8.7 MG/DL (8.3-10.6); CREATININE FOR GFR 1.24 MG/DL (0.55-1.30); GLOMERULAR FILTRATION RATE 43.8 (>32); POTASSIUM SERUM 4.2 MMOL/L (3.5-5.1)
== END ==
PROVIDERS: ATTEND Physician Assistant
DX: D64.9 Anemia, unspecified (principal)

== ENCOUNTER → 2024-08-15 | Outpatient (REF) | payer MEDICARE, MEDICAID ==
[2024-08-15 09:24] LABS: CALCIUM LEVEL 8.4 MG/DL (8.3-10.6); CREATININE FOR GFR 1.2 MG/DL (0.55-1.30); GLOMERULAR FILTRATION RATE 45.5 (>32); POTASSIUM SERUM 3.7 MMOL/L (3.5-5.1)
== END ==
PROVIDERS: ATTEND Physician Assistant
DX: E86.0 Dehydration (principal)

== ENCOUNTER → 2024-08-29 | Outpatient (REF) | payer MEDICARE, MEDICAID | PROVIDERS: ATTEND Physician Assistant | DX: R05.9 Cough, unspecified (principal); I70.0 Atherosclerosis of aorta; Z97.8 Presence of other specified devices ==

== ENCOUNTER → 2024-08-29 | Outpatient (REF) | payer MEDICARE, MEDICAID | PROVIDERS: ATTEND Physician Assistant | DX: R05.9 Cough, unspecified (principal); I70.0 Atherosclerosis of aorta; Z97.8 Presence of other specified devices ==

== ENCOUNTER → 2024-09-05 | Outpatient (REF) | payer MEDICARE, MEDICAID | PROVIDERS: ATTEND Physician Assistant | DX: R05.9 Cough, unspecified (principal) ==

== ENCOUNTER → 2024-12-14 | Outpatient (REF) | payer MEDICARE, MEDICAID ==
[~2024-12-14] MED LIST changes: -PRAV40TA2 PO; +PRAV40TA85 PO; -TRIA25CR TOP; +TRIA80CR15 TOP
[2024-12-14 10:33] LABS: PLATELET COUNT, AUTOMATED 271 10^3/uL (150-450)
[2024-12-14 11:06] LABS: CALCIUM LEVEL 8.7 MG/DL (8.3-10.6); CARBON DIOXIDE LEVEL 30.0 MMOL/L (20-31); CHLORIDE LEVEL 102.0 MMOL/L (98-107); CREATININE FOR GFR 1.27 MG/DL (0.55-1.30); GLOMERULAR FILTRATION RATE 41.2 (>32); POTASSIUM SERUM 4.0 MMOL/L (3.5-5.1); SODIUM LEVEL 145.0 MMOL/L (136-145)
== END ==
PROVIDERS: ATTEND Physician Assistant
DX: D64.9 Anemia, unspecified (principal)

== ENCOUNTER → 2025-01-27 | Outpatient (REF) | payer MEDICARE, MEDICAID | PROVIDERS: ATTEND Physician Assistant | DX: I50.9 Heart failure, unspecified (principal) ==

== ENCOUNTER → 2025-02-01 | Outpatient (REF) | payer MEDICARE, MEDICAID ==
[2025-02-01 10:05] LABS: PLATELET COUNT, AUTOMATED 256 10^3/uL (150-450)
[2025-02-01 10:37] LABS: CALCIUM LEVEL 9.2 MG/DL (8.3-10.6); CARBON DIOXIDE LEVEL 30.0 MMOL/L (20-31); CHLORIDE LEVEL 101.0 MMOL/L (98-107); CREATININE FOR GFR 1.25 MG/DL (0.55-1.30); GLOMERULAR FILTRATION RATE 42.0 (>32); POTASSIUM SERUM 3.6 MMOL/L (3.5-5.1); SODIUM LEVEL 147.0 MMOL/L (136-145)
== END ==
PROVIDERS: ATTEND Internal Medicine
DX: I50.9 Heart failure, unspecified (principal)

== ENCOUNTER → 2025-04-10 | Outpatient (REF) | payer MEDICARE, MEDICAID ==
[2025-04-10 12:55] LABS: PLATELET COUNT, AUTOMATED 297 10^3/uL (150-450)
[2025-04-10 13:25] LABS: CALCIUM LEVEL 8.4 MG/DL (8.3-10.6); CARBON DIOXIDE LEVEL 36.0 MMOL/L (20-31); CHLORIDE LEVEL 98.0 MMOL/L (98-107); CREATININE FOR GFR 1.32 MG/DL (0.55-1.30); GLOMERULAR FILTRATION RATE 39.3 (>32); POTASSIUM SERUM 3.9 MMOL/L (3.5-5.1); SODIUM LEVEL 144.0 MMOL/L (136-145)
== END ==
PROVIDERS: ATTEND Physician Assistant
DX: D64.9 Anemia, unspecified (principal)

== ENCOUNTER → 2025-05-30 | Outpatient (REF) | payer MEDICARE, MEDICAID | PROVIDERS: ATTEND Physician Assistant | DX: R05.9 Cough, unspecified (principal) ==